=== PATIENT | female | born 1955 | race American Indian/Alaskan Native ===

== ENCOUNTER 2024-05-25 13:11 | Outpatient (REF) | payer MEDICAID, OTHER, SELFPAY ==
[2024-05-25 16:19] LABS: MANUAL DIFF FLAG NO
[2024-05-25 17:05] LABS: Basophils Percent Auto 0.6 % (0-2); Eosinophils Absolute Auto 0.1 X10*3/uL (0.0-0.4); Hematocrit 36.3 % (37.0-47.0); Imm Gran Abs Auto 0.03 X10*3/uL (0.00-0.03); Imm Gran Pct Auto 0.6 % (0.0-0.4); Lymphocytes Absolute Auto 0.9 X10*3/uL (1.2-4.9); Lymphocytes Percent Auto 17.2 % (20-40); Mean Corpuscular HGB Conc 33.1 g/dl (31.0-35.0); Mean Corpuscular Hemoglobin 28.6 pg (27.0-33.0); Mean Corpuscular Volume 86.4 fL (80.0-98.0); Mean Platelet Volume 10.7 fL (9.4-12.3); Monocytes Absolute Auto 0.3 X10*3/uL (0.1-1.2); Monocytes Percent Auto 5.6 % (2-11); Neutrophils Absolute Auto 3.9 x10*3/uL (2.0-8.3); Platelet Count 316 X10*3/uL (160-400); Red Cell Distribution Width 13.2 % (11.0-16.0); White Blood Count 5.2 X10*3/uL (4.8-10.8)
[2024-05-25 17:10] LABS: Estimated Average Glucose 111 mg/dL; Hemoglobin A1C 113.1263 umol/L; Hemoglobin A1c % 5.5 % (<6.0)
[2024-05-25 17:16] LABS: Alanine Aminotransferase 12 U/L (0-31); Albumin Level 4.2 g/dL (3.5-5.0); Alkaline Phosphatase 104 U/L (39-117); Anion Gap 15 (12-20); Aspartate Amino Transferase 26 U/L (5-31); Bilirubin Total 0.3 mg/dL (0.0-1.0); Blood Urea Nitrogen 13 mg/dL (9-16); Calcium 9.2 mg/dL (8.4-10.2); Carbon Dioxide 23 mmol/L (22-29); Chloride 109 mmol/L (96-108); Cholesterol 199 mg/dL (<200); Estimated Glomerular Filt Rate > 60; Glucose Random 100 mg/dL (60-115); HDL Cholesterol 37 mg/dL (>40); LDL Cholesterol Calculated 95 mg/dL (<100); Sodium 144 mmol/L (135-145); Total Protein 7.1 g/dL (6.5-8.0); Triglycerides 339 mg/dL (<150)
[2024-05-25 17:18] LABS: TSH reflex Free T4 1.14 uIU/mL (0.32-4.0); Vitamin D 25-OH Total 30.4 ng/mL (>30)
[2024-05-26 04:03] LABS: HIV AB/AG Nonreactive (Nonreactive); HIV Num 1 0.07 S/CO (0.00-0.99); ~Hepatitis C Antibody Nonreactive (Nonreactive)
== END 2024-05-25 13:12 | disposition home or self-care (01) ==
LOC: HO.HHCL 13:11
PROVIDERS: Visit Provider Internal Medicine
DX: I10 Essential (primary) hypertension (principal)
CPT/HCPCS: 36415; 80053; 80061; 82306; 83036; 84443; 85025; 86803; 87389

== ENCOUNTER 2024-06-08 14:38 | Outpatient (REF) | payer MEDICAID, OTHER, SELFPAY ==
[2024-06-08 16:57] LABS: Potassium 3.5 mmol/L (3.3-5.1)
== END 2024-06-08 14:39 | disposition home or self-care (01) ==
LOC: HO.HHCL 14:38
PROVIDERS: Visit Provider Internal Medicine
DX: E87.6 Hypokalemia (principal)
CPT/HCPCS: 36415; 84132

== ENCOUNTER → 2024-06-22 13:54 | Outpatient (REF) | payer MEDICAID, OTHER, SELFPAY ==
--- NOTE | 2024-06-22 13:58 | CA_ITS ---
Transthoracic Echocardiogram Patient (Last, First, Middle): Rochelle Mir Maria Gender: Female Date of : 1955 Age: 68 Procedure Date: 06/22/2024 Procedure Type: Transthoracic Echocardiogram Location: OP Height: 137.16 cm Weight: 59.99 kg BSA: 1.45 m2 Heart Rate: bpm BP: 132 / 80 mmHg Box Office Attendant: Referring MD: Shala Hawk MD Crew Clerk: Rio Butler MD Symptoms: I.10 HTN R01.1 SYSTOLIC MURMUR Study Quality: Good ECG Rhythm: Sinus Conclusions: - 1. Normal LV ejection fraction of 60 65% with impaired relaxation filling pattern 2. Vumt-bq-yjvwuhje aortic stenosis with mean gradient of 15 mm Hg 3. Normal RV systolic pressure 4. No gross pericardial effusion Findings Left Ventricle Normal left ventricular size, thickness, and systolic function. The visually estimated ejection fraction is between 60-65%. Spectral Doppler is indicative of an impaired relaxation filling pattern. E/E prime ratio is between 8 and 15 consistent with indeterminate filling pressures. Right Ventricle Normal right ventricular cavity size and systolic function. Atria Both atria are normal in size. There is no evidence of interatrial shunt. Aortic Valve There is moderate calcification of the aortic valve. There is mild thickening of the aortic valve. There is mild to moderate aortic valve stenosis. The peak aortic gradient is 31 mmHg.The mean gradient is 15 mmHg. The aortic valve area is 1.46 cm2. There is no aortic valve regurgitation. Mitral Valve There is mild anterior and posterior mitral leaflet thickening. There is trace mitral valve regurgitation. There is no mitral valve stenosis. Pulmonic Valve The pulmonic valve was not well visualized. Tricuspid Valve Likely normal tricuspid valve structure and function. There is mild tricuspid valve regurgitation. The right ventricular systolic pressure is 28 mmHg. Normal right atrial pressure. There is no evidence of pulmonary hypertension. Great Vessels The pulmonary artery was not well visualized. There is no dilatation of the ascending aorta measuring 3.30 cm. Small plaque is seen in the sino tubular ridge. Venous The inferior vena cava is normal in size and collapses greater than 50% with inspiration. Pericardium/Pleural There is no evidence of pericardial effusion. Prior Study Comparison No prior study available for comparison. Measurements 2D Linear Measurements IVSd: 0.99 0.6-0.9/0.6-1.0 cm LVIDd: 4.01 3.9-5.3/4.2-5.9 cm LVIDd Index: 2.77 2.4-3.2/2.2-3.1 cm/m2 LVIDs: 2.57 2.0-3.6 cm LVPWd: 1.03 0.7-1.1 cm Ao Root: 3.00 2.1-3.5 cm LA Diam: 3.50 2.7-3.8/3.0-4.0 cm LAIDs Index: 2.41 1.5-2.3 cm/m2 LV Mass: 160.97 67-162/88-224 g LV Mass Index: 111.01 43-95/49-115 g/m2 LVOT Diam: 1.90 3.0+(-)1.3 cm Mitral Valve MV Pk E: 0.65 MV PK A: 1.09 MV Decel Time: 223.00 E/A: 0.60 E'Lateral: 7.72 E'Medial: 5.11 E/E' Med: 12.70 E/E' Lat: 8.40 PHT: 65.00 MVA PHT: 3.38 Decel Dubois: 2.92 Aortic Valve AoV Pk Sekou: 2.77 AoV Mn Sekou: 1.78 AoV VTI: 0.55 AoV Pk Grad: 31.00 Aov Mn Grad: 15.00 JERRY Cont.VTI: 1.46 LVOT LVOT Pk Sekou: 1.24 LVOT Mn Sekou: 0.82 LVOT VTI: 0.28 LVOT Pk Grad: 6.00 LVOT Mn Grad: 3.00 LVOT Diam: 1.90 LVOT Area: 2.84 Diastolic Function MV Pk E: 0.65 MV Pk A: 1.09 E/A: 0.60 E'Medial: 5.11 E/E' Med: 12.70 E' Laterial: 7.72 E/E' Lat: 8.40 Right Ventricle TAPSE (mm): 21.00 TVS' Sekou: 11.00 Tricuspid Valve TR Pk Sekou: 2.49 TR Pk Grad: 25.00 RA Press: 3.00 RVSP: 28.00 Great Vessels Aorta Ao Root-2D: 3.00 2.0-3.7 cm Ao Asc: 3.30 2.1-3.4 cm Pulmonary Valve PV Pk Sekou: 1.08 Peak PV Grad: 5.00 Updated in Other Vendor System with Status of Final Rio Butler MD electronically signed on 06/23/2024 9:50:49 AM with status of Final
== END ==
LOC: HO.CARD 13:54
PROVIDERS: Visit Provider Internal Medicine
DX: R01.1 Cardiac murmur, unspecified (principal); I10 Essential (primary) hypertension
CPT/HCPCS: 93306

== ENCOUNTER → 2024-06-22 13:58 | Outpatient (BNV) | payer MEDICAID, SELFPAY | PROVIDERS: Visit Provider Internal Medicine Cardiovascular Disease | DX: I35.0 Nonrheumatic aortic (valve) stenosis (principal); I36.1 Nonrheumatic tricuspid (valve) insufficiency | CPT/HCPCS: 93306 ==

== ENCOUNTER 2024-07-21 10:08 | Outpatient (REF) | payer MEDICAID, OTHER, SELFPAY ==
--- NOTE | ~2024-07-21 | CT_ITS ---
CLINICAL HISTORY: suprasternal pulsation CT chest without contrast Comparison: None Findings: There is no cardiomegaly. No aortic aneurysm. Minimal atherosclerotic disease of the coronary arteries. There is atherosclerotic disease along the aortic valve No thyroid lesion. No mediastinal adenopathy. No pleural effusion or pneumothorax. No suspicious lung lesion. Tiny calcified granuloma, right middle lobe on axial 298. 3 mm subpleural nodule, axial 314 within the right lower lobe. The visualized upper abdomen demonstrates several gallstones. Low-density lesions within the liver likely reflects cysts. Line fecal retention noted throughout the colon. Impression: No CT explanation for the patient's reported sub sternal pulsation. There is no aneurysms present. There is a 3 mm right lower lobe pulmonary nodule. This does not meet size criteria to warrant follow-up; however, if the patient is considered high risk for developing malignancy, a [address] could be considered. Cholelithiasis. Fecal retention within the colon. This document has been electronically signed by: Ad Becerra MD on 07/21/2024 11:53:30
== END 2024-07-21 10:09 | disposition home or self-care (01) ==
LOC: HO.CT 10:08
PROVIDERS: PCP Internal Medicine; Visit Provider Student in an Organized Health Care Education/Training Program
DX: I71.60 Thoracoabdominal aortic aneurysm, without rupture, unspecified (principal)
CPT/HCPCS: 71250

== ENCOUNTER → 2024-07-21 10:11 | Outpatient (BNV) | payer MEDICAID, SELFPAY | PROVIDERS: PCP Internal Medicine; Visit Provider Radiology Vascular & Interventional Radiology | DX: R09.89 Other specified symptoms and signs involving the circulatory and respiratory systems (principal) | CPT/HCPCS: 71250 ==

== ENCOUNTER 2024-08-16 15:01 | Outpatient (REF) | payer MEDICAID, OTHER, SELFPAY ==
--- OUTSIDE RECORDS SUMMARY | 2024-08-16 16:01 | XMS_ITS | Encounter Summary ---
Author Organization [employer] Address [address] [facility] 7 [place] [address] Care Team Providers Care Mixer And Blender Name Role Phone Unavailable Primary Care Provider Unavailabl e Reason for Visit * Reason Comments Pre-visit Planning (Unable to reach for PVP screening, LVM) Encounter Details Date Type Department Care Team (Late st Contact Info) Description 08/04/2024 Patient Outreach [facility] [address] [place] [address] Tanya Dobbs NP [address] [place] [address] Pre-visit Planning ((Unable to reach for PVP screening, LVM)) Social History Tobacco Use Types Packs/Day Years Used Date Smoking Tobacco: Never Passive Smoke Exposure: Never Smokeless Tobacco: Never Alcohol Use Standard Drinks/Week Comments Never 0 (1 standard drink = 0.6 oz pur e alcohol) Comments Unknown Sex and Gender Information Value Date Recorded Sex Assigned at Female 05/20/2024 10:44 AM EDT Legal Sex Female 10:42 AM EDT Gender Identity Female 05/20/2024 10:44 AM EDT Sexual Orientation Straight 05/20/2024 10 :44 AM EDT documented as of this encounter Progress Notes * Sarah Byrd - 08/04/2024 9:36 AM EST LAURA Smith. Placed outbound call to patient to complete pre-visit planning. No answer at this time. Patient name and were not confirmed. CC left voicemail requesting return call. Direct contact information provided. documented in this encounter Plan of Treatment Upcoming Encounters Date Type Department Care Team (Late Contact Info) Description 09/30/2024 2:30 PM EDT Office Visit [facility] [address] [place] [id number] Tanya Dobbs NP [address] [place], [place] [phone] documented as of this encounter Visit Diagnoses Not on filedocumented in this encounter
--- OUTSIDE RECORDS SUMMARY | 2024-08-16 16:01 | XMS_ITS | Encounter Summary ---
Author Organization [employer] Address [address] [facility] [address] [place] [address] Care Team Providers Care Apprentice Plumber Name Role Phone Tanya Dobbs NP Primary Care Provider [phone] Reason for Visit * Reason Comments Med Refill Encounter Details Date Type Department Care Team ([facility] Contact Info) Description 06/16/2024 Refill [facility] [address] [place] [address] Anay Reece MD [address] [place] [address] Social History Tobacco Use Types Packs/Day Years [...] AM EDT documented as of this encounter Plan of Treatment Upcoming Encounters Date Type Department Care Team ([facility] Contact Info) Description 09/30/2024 2:30 PM EDT Office Visit [facility] [address] [place] [address] Tanya Dobbs NP [address] [place] [address] documented as of this encounter Visit Diagnoses Not on filedocumented in this encounter Care Teams Apprentice Plumber Relationship Specialty Start Date End Date Tanya Dobbs NP [address] [place] [address] PCP - General Family Medicine 08/16/24 documented as of this encounter
--- OUTSIDE RECORDS SUMMARY | 2024-08-16 16:01 | XMS_ITS | Encounter Summary ---
Author Organization [employer] Address [address] [facility] [address] [place] [address] Care Team Providers Care Pictures Editor Name Role Phone Tanya Dobbs LESLI Primary Care Provider [phone] Encounter Details Date Type Department Care Team (Latest Contact Info) Description 08/16/2024 Travel Social History Tobacco Use Types Packs/Day Years Used Date Smoking Tobacco: Never Passive Smoke Exposure: Never Smokeless Tobacco: Never Alcohol Use Standard Drinks/Week Comments Never 0 (1 standard drink = 0.6 oz pur e alcohol) Housing Stability Answer Date Recorded What is your housing situation today? I have [place] 08/16/[address] you li ve. Do you have problems with any of the following? None of the above 08/16/2024 Food Insecurity Answer Date Recorded Within the past 12 months, y ou worried that your food would run out before you got money to buy more: Sometimes True 2024 Within the past 12 months,th e food you bought just didn't last and you didn't have enough money to get more: Sometimes True 08/16/2024 Transportation Answer Date Recorded In the past 12 months, has l ack of transportation kept you from medical appts, meetings, work or from getting things needed for daily living? Yes, it has kept me from medical appointments or getting medications.;Yes, it has kept me from non-medical meetings, work, or getting things that I need 08/16/2024 Utilities Answer Date Recorded In the past 12 months, has t he electric, gas, oil or water company threatened to shut off services in your home? I am not sure 08/16/2024 Internet Access Answer Date Recorded Internet Access Q1 Yes 08/16/2024 Internet Access Q2 Not on file 08/16/2024 Comments Unknown Sex and Gender Information Value Date Recorded Sex Assigned at Female 05/20/2024 10:44 AM EDT Legal Sex Female 10:42 AM EDT Gender Identity Female 05/20/2024 10:44 AM EDT Sexual Orientation Straight 05/20/2024 10 :44 AM EDT documented as of this encounter Plan of Treatment Upcoming Encounters Date Type Department Care Team (Late st Contact Info) Description 09/30/2024 2:30 PM EDT Office Visit [facility] [address] [place] [address] Tanya Dobbs NP [address] [place] [address] documented as of this encounter Visit Diagnoses Not on filedocumented in this encounter Care Teams Pictures Editor Relationship Specialty Start Date End Date Tanya Dobbs NP [address] [place] [address] PCP - General Family Medicine 08/16/24 documented as of this encounter
--- OUTSIDE RECORDS SUMMARY | 2024-08-16 16:01 | XMS_ITS | Encounter Summary ---
Author Organization [facility] Address [address] [facility] [address]t [place] [address] Care Team Providers Care Letterpress Setter Name Role Phone Unavailable Primary Care Provider Unavailabl e Reason for Visit * Reason Onset Date Comments Chart Prep 08/03/2024 Encounter Details Date Type Department Care Team (Late st Contact Info) Description 08/03/2024 Telephone [facility] [address] [place], [place] [phone] Denice Hansen MA Chart Prep Social History Tobacco Use Types Packs/Day Years [...] AM EDT documented as of this encounter Miscellaneous Notes * Telephone Encounter - Denice Hansen MA - 08/03/2024 4:15 PM EST Chart Prep Labs: done Images: done Vaccines due: Covid Due, Tdap Due, PCV20 Due, Flu Due, and Shingles in pharmacy Due Referrals: Cardiology complete Screenings: Colonoscopy and Mammogram Overdue care gaps: Sbirt, SDOH, PHQ-9, and Oral Health documented in this encounter Plan of Treatment Upcoming Encounters Date Type Department Care Team (Late st Contact Info) Description 09/30/2024 2:30 PM EDT Office Visit [facility] [address] [place], [place] [phone] Tanya Dobbs NP [address] [place], [place] [phone] documented as of this encounter Visit Diagnoses Not on filedocumented in this encounter
--- OUTSIDE RECORDS SUMMARY | 2024-08-16 16:01 | XMS_ITS | Encounter Summary ---
Author Organization [employer] Address [address] [facility] 7t [place] [address] Care Team Providers Care Underground Mine Machinery Mechanic Name Role Phone Tanya Dobbs NP Primary Care Provider [phone] Reason for Referral * Imaging (Routine) - Authorized Specialty Diagnoses / Procedures Referred By Jo bacon Referred To Contact Radiology Diagnoses RUQ pain Procedures US Abdomen Complete Tanya Dobbs NP [address] [place] [address] Phone: tel: fax: [facility] [address] [place] [address] Phone: tel: fax: Referral ID Status Reason Start Date Expiration Date V isits Requested Visits Authorized [id number] Authorized 08/16/2024 08/16/2025 1 1 * Consultation (Routine) - Pending Review Specialty Diagnoses / Procedures Referred By Jo bacon Referred To Contact Cardiology Diagnoses Hypertension, unspecified type Aortic stenosis, moderate Tanya Dobbs NP [address] [place] [address] Phone: tel: fax: Referral ID Status Reason Start Date Expiration Date Visits Requested Visits Authorized [id number] Pending Review Specialty Services Required 08/16/2024 08/16/2025 1 1 Encounter Details Date Type Department Care Team (Late st Contact Info) Description 08/16/2024 2:00 PM EST Office Visit [facility] [address] [place] [address] Tanya Dobbs NP [address] [place] [address] Hypertension, unspecified type (Primary Dx); Aortic stenosis, moderate; RUQ pain Social History Tobacco Use Types Packs/Day Years [...] AM EDT documented as of this encounter Last Filed Vital Signs Vital Sign Reading Time Taken Comments Blood Pressure 178/84 08/16/2024 2:20 PM EST 161/80 second time RA Pulse 91 08/16/2024 2:20 PM EST Temperature 36.3 ??C (97.4 ??F) 08/16/2024 2 :20 PM EST Respiratory Rate 16 08/16/2024 2:20 PM EST Oxygen Saturation 97% 08/16/2024 2:2 0 PM EST Inhaled Oxygen Concentration - - Weight 57.4 kg (126 lb 9.6 oz) 08/16/2024 2:20 PM EST Height 149.9 cm (4' 11 ) 08/16/2024 2:2 0 PM EST Body Mass Index 25.57 08/16/2024 2:20 PM EST documented in this encounter Plan of Treatment Upcoming Encounters Date Type Department Care Team (Late st Contact Info) Description 09/30/2024 2:30 PM EDT Office Visit [facility] [address] [place] [address] Tanya Dobbs NP [address] [place] [address] Scheduled Orders Name Type Priority Associated Diagnoses Orde r Schedule Comprehensive Metabolic Panel Lab Routine RUQ pain Expected: 08/16/2024 (Approximate), Expires: 08/16/2025 US Abdomen Complete Imaging Routine RUQ pain Expected: 08/16/2024, Expires: 08/16/2025 Hepatitis C Antibody with Reflex to HCV, RNA, Quantitative, Real-Time PCR Lab Routine RUQ pain Expected: 08/16/2024, Expires: 08/16/2025 CBC auto differential Lab Routine RUQ pain Expected: 08/16/2024 (Approximate), Expires: 08/16/2025 Scheduled Referrals Name Type Priority Associated Diagnoses Orde r Schedule Referral to Cardiology Outpatient Referral Routine Hypertension, unspecified type Aortic stenosis, moderate Expected: 08/16/2024 (Approximate), Expires: 08/16/2025 documented as of this encounter Visit Diagnoses Diagnosis Hypertension, unspecified type- Primary Aortic stenosis, moderate RUQ pain Abdominal pain, right upper quadrant documented in this encounter Care Teams Underground Mine Machinery Mechanic Relationship Specialty Start Date End Date Tanya Dobbs NP [address] [place] [address] PCP - General Family Medicine 08/16/24 documented as of this encounter
--- OUTSIDE RECORDS SUMMARY | 2024-08-16 16:02 | XMS_ITS | Clinical Summary ---
Author Organization [employer] Address [address] [facility] [address] [place] [address] Care Team Providers Care Servicing Manager Name Role Phone ElbaTanya munoz LESLI Primary Care Provider [phone] Allergies No known active allergies Medications aspirin 81 MG EC tablet Take 1 tablet (81 mg) by mouth Once per day. 30 tablet 11 4 025 Active atorvastatin (Lipitor) 10 MG tabletIndication s:Uncontrolled hypertension Take 1 tablet (10 mg) by mouth Once per day. 30 tablet 11 4 025 Active lisinopril (Prinivil) 20 MG tabletIndication s:Primary hypertension Take 1 tablet (20 mg) by mouth Once per day. 30 tablet 11 4 025 Active Blood Pressure Monitoring (Blood Pressure Cuff) misc 1 kit Once per day. 1 each 5 Active amLODIPine (Norvasc) 10 MG tablet Take 1 tablet (10 mg) by mouth Once per day. 90 tablet 3 5 026 Active amLODIPine (Norvasc) 5 MG tabletIndication s:Primary hypertension Take 1 tablet (5 mg) by mouth Once per day. 30 tablet 11 4 025 Discontinued Active Problems Problem Noted Date Diagnosed Date Aortic stenosis, moderate 08/16/2024 RUQ pain 08/16/2024 Hypertension 08/15/2024 Uncontrolled hypertension 05/25/2024 Assessment & Plan (05/25/2024 1:19 PM EST): I advise low Na diet I will order blood work I will increase lisinopril to 20mg and add amlodipine 5mg daily I will refer patient to cardiology RTC nurse visit in 2 weeks if BP not at goal plan is to increase amlodipine ED precautions where reviewed with patient EKG done at office Clonidine 0.2mg given at office BP recheck 166/66mmhg Bruit of right carotid artery 05/25/2024 Systolic murmur 05/25/2024 Assessment & Plan (05/25/2024 1:21 PM EST): Echo and cardiology referral Headache 05/25/2024 Assessment & Plan (05/25/2024 1:20 PM EST): CT of head pending Headache resolved at the end of this visit, likely related to blood pressure Acetaminophen PRN Primary hypertension 05/20/2024 Encounters Date Type Department Care Team Description 08/16/2024 2:00 PM EST Office [address] [place] [address] Tanya Dobbs NP Hypertension, unspecified type (Primary Dx); Aortic stenosis, moderate; RUQ pain 08/16/2024 Travel 08/04/2024 Patient Outreach [address] [address] Tanya Dobbs NP Pre-visit Planning ((Unable to reach for PVP screening, LVM)) 08/03/[address] [address] Denice Hansen [place] Chart Prep 06/16/2024 Refill [facility] [address] [place] [phone] Anay Reece MD 06/08/2024 2:00 PM EST Clinical Support [address] [address] Meghna Reyes, DOROTHY Primary hypertension 06/08/2024 Orders Only [address] [address] Shala Mata MD 06/08/[address] [address] Meghna Reyes, RN Nurse BP check 06/08/2024 Travel 05/26/[address] [address] Maribel Zavala, DOROTHY Results 05/25/2024 11:00 AM EST Office Visit [facility] [address] [place] [address] Shala Mata MD Primary hypertension (Primary Dx); Uncontrolled hypertension; Bruit of right carotid artery; Systolic murmur; Acute nonintractable headache, unspecified headache type 05/25/2024 Travel 05/20/2024 11:00 AM EDT Office Visit [facility] [address] [place] [address] Anay Reece MD Primary hypertension (Primary Dx); Cardiac murmur; Thoracoabdominal aortic aneurysm (TAAA) without rupture, unspecified part ([facility]) 05/20/2024 Telephone [facility] [address] [place] [address] Vikki Betts RN ED Expect from Last 3 Months Family History Relation Name Status Comments Father Mother Alive Social History Tobacco Use Types Packs/Day Years Used Date Smoking Tobacco: Never Passive Smoke Exposure: Never Smokeless Tobacco: Never Tobacco Cessation:Counseling Given: Not Answered Alcohol Use Standard Drinks/Week Comments Never 0 (1 standard drink = 0.6 oz pur e alcohol) Housing Stability Answer Date Recorded What is your housing situation today? I have mariana brad 08/16/[address] you li [...] the past 12 months, has t he [employer], gas, oil or water company threatened to [...] Orientation Straight 05/20/2024 10 :44 AM EDT Last Filed Vital Signs Vital Sign Reading [...] Mass Index 25.57 08/16/2024 2:20 PM EST Plan of Treatment Upcoming Encounters Date Type Department Care Team (Late st Contact Info) Description 09/30/2024 2:30 PM EDT Office Visit [facility] [address] [place] [address] Tanya Dobbs NP [address] [place] [address] Health Maintenance Due Date Last Done Comments CT Colonography 1955 Colonoscopy 1955 Colorectal Cancer Screening 1955 Depression Screening 1955 FIT DNA/Cologuard 1957 FIT 1957 FOBT 1955 Sigmoidoscopy 1957 Pneumococcal Vaccine: 65+ Ye ars (1 of 2 - PCV) 12/15/1963 DTaP/Tdap/Td Vaccines (1 - Tdap) 1976 Mammogram 1997 Zoster Vaccines (1 of 2) 12/15/2007 RSV Patients and Pa tients Aged 60 years or older (1 - Risk 60-74 years 1-dose series) 2017 COVID-19 Vaccine (1 - 2023-2 5 season) 2024 Influenza Vaccine (#1) 2024 Alcohol/Substance Use Screening 08/16/2025 SDOH Screening 08/16/2025 08/16/2024 Tobacco Screening 08/16/2025 08/16/2024 Lipid Panel 05/25/2029 05/25/2024 Hepatitis C Screening Completed 05/25/2024 HIB Vaccines Aged Out No longer eligi ble based on patient's age to complete this topic HPV Vaccines Aged Out No longer eligi ble based on patient's age to complete this topic Hepatitis A Vaccines Aged Out No long er eligible based on patient's age to complete this topic Hepatitis B Vaccines Aged Out No long er eligible based on patient's age to complete this topic IPV Vaccines Aged Out No longer eligi ble based on patient's age to complete this topic Meningococcal Vaccine Aged Out No moise jami eligible based on patient's age to complete this topic RSV under 20 months Aged Out No longe r eligible based on patient's age to complete this topic Rotavirus Vaccines Aged Out No longer eligible based on patient's age to complete this topic Procedures Procedure Name Priority Date/Time Associated Diagnosis Comments CT CHEST WO CONTRAST Routine 07/21/2024 11:53 AM EST Thoracoabdominal aortic aneurysm (TAAA) without rupture, unspecified part (CMS/HCC) POTASSIUM Routine 06/08/2024 2:39 PM EST ECG 12-LEAD Routine 05/25/2024 1:19 PM EST Uncontrolled hypertension TSH W/REFLEX TO FT4 Routine 05/25/2024 1 :13 PM EST Uncontrolled hypertension VITAMIN D,25-OH,TOTAL,IA Routine 05/25/2024 1:13 PM EST Uncontrolled hypertension LIPID PANEL, STANDARD Routine 05/25/2024 1:13 PM EST Uncontrolled hypertension HEPATITIS C AB W/REFL TO HCV RNA, QN, PCR Routine 05/25/2024 1:13 PM EST Uncontrolled hypertension HIV 1/2 ANTIGEN/ANTIBODY, FOURTH GENERATION W/RFL Routine 05/25/2024 1:13 PM EST Uncontrolled hypertension HEMOGLOBIN A1C Routine 05/25/2024 1:13 PM EST Uncontrolled hypertension COMPREHENSIVE METABOLIC PANEL Routine 05/25/2024 1:13 PM EST Uncontrolled hypertension CBC WITH AUTO DIFFERENTIAL Routine 05/25/2024 1:13 PM EST Uncontrolled hypertension ECG 12-LEAD Routine 05/20/2024 11:44 AM EDT Cardiac murmur from Last 3 Months Results * CT Chest w/o Contrast (07/21/2024 11:53 AM EST) Anatomical Region Laterality Modality Body, Chest Computed Tomogra phy 07/21/2024 11:5 3 AM EST Narrative 07/21/2024 11:55 AM EST ? [facility] ?[address] ?[place] [address] ? CT Scan Report ? Signed ? Patient: CammiejessicaRochelle Doll ? MR#: [id number] ? : 1955 ?Acct:[id number] ? Age/Sex: 68 / F ?ADM Date: 07/21/24 ? Loc: HO.CT ? Attending Dr: Anay Reece MD ? Ordering Physician: Anay Reece MD ?? Date of Service: 07/21/24 ?? Procedure(s): CT chest wo IV con ?? Accession Number(s): [id number] ? cc: Shala Mata MD; Anay Reece MD ? Report Number: ?? [id number]: Total DLP = ??107.00 mGy-cm ? CLINICAL HISTORY: suprasternal pulsation ? CT chest without contrast ? Comparison: None ? Findings: ?? There is no cardiomegaly. ?? No aortic aneurysm. ?? Minimal atherosclerotic disease of the coronary arteries. There is ?? atherosclerotic disease along the aortic valve ?? No thyroid lesion. ?? No mediastinal adenopathy. ?? No pleural effusion or pneumothorax. ?? No suspicious lung lesion. Tiny calcified granuloma, right middle lobe on ?? axial 298. ?? 3 mm subpleural nodule, axial 314 within the right lower lobe. ?? The visualized upper abdomen demonstrates several gallstones. Low-density ?? lesions within the liver likely reflects cysts. Line fecal retention noted ?? throughout the colon. ? Impression: ? No CT explanation for the patient's reported sub sternal pulsation. There ?? is no aneurysms present. ?? There is a 3 mm right lower lobe pulmonary nodule. This does not meet size ?? criteria to warrant follow-up; however, if the patient is considered high ?? risk for developing malignancy, a [address] could be considered. ?? Cholelithiasis. ?? Fecal retention within the colon. ? This document has been electronically signed by: Ad Becerra MD on ?? 07/21/2024 11:53:30 ? Dictated By: ?Ad Becerra MD ? Signed By: ?<Electronically signed by Ad Becerra MD in OV> ? 01/02/25 1154 ? DD/ 1153 ? TD/TT: 07/21/24 1153 ? Anatomic Pathology Assistant: ? Procedure Note Bekahter, Image - 07/21/[address] [address] [address] Scan Report Signed Patient: Rochelle Mir MR#: [id number] : 8Acct:[id number] Age/Sex: 68 / FADM Date: 07/21/24 Loc: HO.CT Attending Dr: Anay Reece MD Ordering Physician: Anay Reece MD Date of Service: 07/21/24 Procedure(s): CT chest wo IV con Accession Number(s): [id number] cc: Shala Mata MD; Anay Reece MD Report Number: [id number]: Total DLP = 107.00 mGy-cm CLINICAL HISTORY: suprasternal pulsation CT chest without contrast Comparison: None Findings: There is no cardiomegaly. No aortic aneurysm. Minimal atherosclerotic disease of the coronary arteries. There is atherosclerotic disease along the aortic valve No thyroid lesion. No mediastinal adenopathy. No pleural effusion or pneumothorax. No suspicious lung lesion. Tiny calcified granuloma, right middle lobe on axial 298. 3 mm subpleural nodule, axial 314 within the right lower lobe. The visualized upper abdomen demonstrates several gallstones. Low-density lesions within the liver likely reflects cysts. Line fecal retention noted throughout the colon. Impression: No CT explanation for the patient's reported sub sternal pulsation. There is no aneurysms present. There is a 3 mm right lower lobe pulmonary nodule. This does not meet size criteria to warrant follow-up; however, if the patient is considered high risk for developing malignancy, a [address] could be considered. Cholelithiasis. Fecal retention within the colon. This document has been electronically signed by: Ad Becerra MD on 07/21/2024 11:53:30 Dictated By: Ad Becerra MD Signed By: <Electronically signed by Ad Becerra MD in OV> 07/21/24 1154 DD/ 1153 TD/TT: 07/21/24 1153 Anatomic Pathology Assistant: us Anay Reece MD IMG CT PROCEDURES Edited Result - Final * Potassium (06/08/2024 2:39 PM EST) Potassium 3.5 3.3 - 5.1 mmol/L [facility] 06/08/2024 2:39 PM EST 06/08/2024 4:29 PM EST us Shala Hawk MD LAB BLOOD ORDERABLES Final Result [facility] [address] [place] [phone] * ECG 12 lead (05/25/2024 1:19 PM EST) Only the most recent of2 resultswithin the time period is included. Narrative Shala Mata MD - 05/25/2024 1:19 PM EST NSR Shala Hawk MD ECG ORDERABLES Final Result * Vitamin D, 25-Hydroxy, Total, Immunoassay (05/25/2024 1:13 PM EST) Vitamin D 25-OH Total 30.4 >30 ng/mL [facility] Comment:Health Based Referen ce Values*< 20 ng/mL Zyxevipkq80-90 ng/mL Insufficient> 30 ng/mL Sufficient*Jorge A RAMIRES. N Engl J Med. 2007;357:266-280Care must be taken in interpreting Vitamin D results fromdifferent laboratories and methodologies. Published datademonstrated that results from patients undergoinghemodialysis may show a negative bias when tested withvarious automated 25-OH vitamin D assays when compared toLC-MS/MS.When testing samples from patients whose predominant form ofVitamin D is Vitamin D2, such as patients receiving VitaminD2 supplementation, results that are subtherapeutic shouldbe confirmed with another method such as LC-MS/MS. Blood Venous blood specimen / Unknown 05/25/2024 1:13 PM EST 05/25/2024 4:08 PM EST us Shala Hawk MD LAB BLOOD ORDERABLES Final Result Performing Organization Address [facility]/ZIP Co de Phone Number [facility] [address] [place] [phone] * TSH with Reflex to Free T4 (05/25/2024 1:13 PM EST) TSH reflex Free T4 1.14 0.32 - 4.0 uIU/mL [facility] Blood Venous blood specimen / Unknown 05/25/2024 1:13 PM EST 05/25/2024 4:08 PM EST us Shala Hawk MD LAB BLOOD ORDERABLES Final Result Performing Organization Address [facility]/ZIP Co de Phone Number [facility] [address] [place] [phone] * (ABNORMAL) CBC auto differential (05/25/2024 1:13 PM EST) White Blood Count 5.2 4.8 - 10.8 X10*3/uL [facility] Red Blood Count 4.20 4.20 - 5.50 X10*6/uL [facility] Hemoglobin 12.0 12.0 - 16.0 g/dl [facility] Hematocrit 36.3(L) 37.0 - 47.0 % [facility] Mean Corpuscular Volume 86.4 80.0 - 98.0 fL [facility] Mean Corpuscular Hemoglobin 28.6 27.0 - 33.0 pg [facility] Mean Corpuscular HGB Conc 33.1 31.0 - 35.0 g/dl [facility] Red Cell Distribution Width 13.2 11.0 - 16.0 % [facility] Platelet Count 316 160 - 400 X10*3/uL [facility] Mean Platelet Volume 10.7 9.4 - 12.3 fL [facility] Neutrophils Percent Auto 75.0(H) 45 - 73 % [facility] Imm Gran Pct Auto 0.6(H) 0.0 - 0.4 % [facility] Lymphocytes Percent Auto 17.2(L) 20 - 40 % [facility] Monocytes Percent Auto 5.6 2 - 11 % [facility] Eosinophils Percent Auto 1.0 0 - 4 % [facility] Basophils Percent Auto 0.6 0 - 2 % [facility] NRBC Pct Auto 0.0 0.0 - 0.2 /100WBC [facility] Neutrophils Absolute Auto 3.9 2.0 - 8.3 x10*3/uL [facility] Imm Gran Abs Auto 0.03 0.00 - 0.03 X10*3/uL [facility] Lymphocytes Absolute Auto 0.9(L) 1.2 - 4.9 X10*3/uL [facility] Monocytes Absolute Auto 0.3 0.1 - 1.2 X10*3/uL [facility] Eosinophils Absolute Auto 0.1 0.0 - 0.4 X10*3/uL [facility] Basophils Absolute Auto 0.0 0.0 - 0.2 X10*3/uL [facility] NRBC Abs Auto 0.000 0.0 - 0.012 X10*3/uL [facility] Blood Venous blood specimen / Unknown 05/25/2024 1:13 PM EST 05/25/2024 4:08 PM EST Shala Hawk MD LAB BLOOD ORDERABLES Final Result Performing Organization Address [facility]/ZIP Co de Phone Number [facility] [address] [place] [phone] * Hepatitis C Antibody with Reflex to HCV, RNA, Quantitative, Real-Time PCR (05/25/2024 1:13 PM EST) Hepatitis C Antibody Nonreactive Nonreactive [facility] Comment:Antibodies to HCV no t detected; does not exclude early acuteHCV infection. Blood Venous blood specimen / Unknown 05/25/2024 1:13 PM EST 05/25/2024 4:08 PM EST us Shala Hawk MD LAB BLOOD ORDERABLES Final Result Performing Organization Address [facility] Co de Phone Number [facility] [address] [place] [phone] * HIV-1/2 Antigen and Antibodies, Fourth Generation, with Reflexes (05/25/2024 1:13 PM EST) HIV AB/AG Nonreactive Nonreactive [facility] Comment:HIV-1 p24 Ag and/or HIV-1/HIV-2 Ab not detected.A test result that is nonreactive does not exclude thepossibility of exposure to or infection with HIV-1 and/orHIV-2. Nonreactive results in this assay for individualswith prior exposure to HIV-1 and/or HIV-2 may be due toantigen and antibody levels that are below the limit ofdetection of this assay.The [employer] Alinity HIV Ag/Ab Combo assay result andsupplemental assay results should be interpreted inconjunction with the patient's clinical presentation,history and other laboratory results. If the results areinconsistent with clinical evidence, additional testing issuggested to confirm the result. Blood Venous blood specimen / Unknown 05/25/2024 1:13 PM EST 05/25/2024 4:08 PM EST us Shala Hawk MD LAB BLOOD ORDERABLES Final Result Performing Organization Address [facility] Co de Phone Number [facility] [address] [place] [phone] * Hemoglobin A1c (05/25/2024 1:13 PM EST) Hemoglobin A1c 5.5 <6.0 % [facility] Comment:Hemoglobin A1C Refer ence Range Adults: 4.8 - 6.0 % Non diabetic: < 6.0 % Goal: < 7.0 %Additional Action Suggested: > 8.0 %Note: Hemoglobin A1c results are invalid for patients with abnormal amounts of HbF. Blood transfusions may impact the HbA1c concentration in the patient sample. Estimated Average Glucose 111 mg/dL [facility] Comment:eAG = Estimated ave rage glucose which is %A1C expressed asaverage glucose, using the formula of the W0A-YdjefljRiurvyy Glucose study (ADAG), Diabetes Care, Vol.31,#8,Feb. 2007 Blood Venous blood specimen / Unknown 05/25/2024 1:13 PM EST 05/25/2024 4:08 PM EST us Shala Hawk MD LAB BLOOD ORDERABLES Final Result Performing Organization Address [facility] Co de Phone Number [facility] [address] [place] [address] [phone] * (ABNORMAL) Lipid Panel, Standard (05/25/2024 1:13 PM EST) Triglycerides 339(H) <150 mg/dL [facility] Comment:Desirable Triglyceri de: less than 150 mg/dLBorderline High Triglyceride 150-199 mg/dLHigh Triglyceride: 200-499 mg/dLVery High Triglyceride: greater than or equal to 5OO mg/dL Cholesterol 199 <200 mg/dL [facility] Comment:Desirable Cholestero l: less than 200 mg/dLBorderline High Cholesterol: 200-239 mg/dLHigh Cholesterol: greater than 239 mg/dL LDL Cholesterol Calculated 95 <100 mg/dL [facility] Comment:Desirable LDL: less than 100 mg/dLNear Optimal/Above Optimal LDL: 110- 129 mg/dLBorderline High LDL: 130-159 mg/dLHigh LDL: 160-189 mg/dLVery High LDL: greater than or equal to 190 mg/dL HDL Cholesterol 37(L) >40 mg/dL [facility] Comment:Desirable HDL: great er than 40 mg/dL Note: This HDL assay may give artificially low results in patients with liver disease. Blood Venous blood specimen / Unknown 05/25/2024 1:13 PM EST 05/25/2024 4:08 PM EST us Shala Hawk MD LAB BLOOD ORDERABLES Final Result [facility] [address] [place] [phone] * (ABNORMAL) Comprehensive Metabolic Panel (05/25/2024 1:13 PM EST) Sodium 144 135 - 145 mmol/L [facility] Potassium 3.0(L) 3.3 - 5.1 mmol/L [facility] Chloride 109(H) 96 - 108 mmol/L [facility] Carbon Dioxide 23 22 - 29 mmol/L [facility] Anion Gap 15 12 - 20 [facility] Urea Nitrogen (BUN) 13 9 - 16 mg/dL [facility] Creatinine, Serum 0.55 0.5 - 1.4 mg/dL [facility] Estimated Glomerular Filt Rate >60 [facility] Comment:NOTE: For -Am erican individuals, multiply the result by 1.210.Chronic Kidney Disease: Estimated GFR < 60 mL/min/1.65e6Xqfysy Kidney Disease: Estimated GFR < 15 mL/min/1.73m2 Glucose 100 60 - 115 mg/dL [facility] Calcium 9.2 8.4 - 10.2 mg/dL [facility] Bilirubin, Total 0.3 0.0 - 1.0 mg/dL [facility] Aspartate Amino Transferase 26 5 - 31 U/L [facility] Alanine Aminotransferase 12 0 - 31 U/L [facility] Total Protein 7.1 6.5 - 8.0 g/dL [facility] Albumin Level 4.2 3.5 - 5.0 g/dL [facility] Alkaline Phosphatase 104 39 - 117 U/L [facility] Blood Venous blood specimen / Unknown 05/25/2024 1:13 PM EST 05/25/2024 4:08 PM EST Shala Hawk MD LAB BLOOD ORDERABLES Final Result [facility] [address] [place] [phone] from Last 3 Months Insurance [facility] HSN FULL Care Teams Servicing Manager Relationship Specialty Start Date End Date Tanya Dobbs NP [address] [place] [phone] PCP - General Family Medicine 08/16/24
[2024-08-16 16:13] LABS: MANUAL DIFF FLAG NO
[2024-08-16 16:28] LABS: Basophils Percent Auto 0.8 % (0-2); Eosinophils Absolute Auto 0.1 X10*3/uL (0.0-0.4); Hematocrit 36.5 % (37.0-47.0); Hemoglobin 12.4 g/dl (12.0-16.0); Imm Gran Abs Auto 0.06 X10*3/uL (0.00-0.03); Imm Gran Pct Auto 1.2 % (0.0-0.4); Lymphocytes Absolute Auto 1.2 X10*3/uL (1.2-4.9); Lymphocytes Percent Auto 23.9 % (20-40); Mean Corpuscular Hemoglobin 29.7 pg (27.0-33.0); Mean Corpuscular Volume 87.5 fL (80.0-98.0); Mean Platelet Volume 10.5 fL (9.4-12.3); Monocytes Absolute Auto 0.3 X10*3/uL (0.1-1.2); Monocytes Percent Auto 4.8 % (2-11); Neutrophils Absolute Auto 3.5 x10*3/uL (2.0-8.3); Neutrophils Percent Auto 68.3 % (45-73); Platelet Count 306 X10*3/uL (160-400); Red Blood Count 4.17 X10*6/uL (4.20-5.50); Red Cell Distribution Width 13.2 % (11.0-16.0); White Blood Count 5.2 X10*3/uL (4.8-10.8)
[2024-08-16 16:51] LABS: Alanine Aminotransferase 22 U/L (0-31); Albumin Level 4.4 g/dL (3.5-5.0); Alkaline Phosphatase 102 U/L (39-117); Anion Gap 11 (12-20); Aspartate Amino Transferase 18 U/L (5-31); Bilirubin Total 0.2 mg/dL (0.0-1.0); Blood Urea Nitrogen 13 mg/dL (9-16); Calcium 9.2 mg/dL (8.4-10.2); Carbon Dioxide 28 mmol/L (22-29); Chloride 109 mmol/L (96-108); Estimated Glomerular Filt Rate > 60; Glucose Random 125 mg/dL (60-115); Potassium 3.7 mmol/L (3.3-5.1); Sodium 144 mmol/L (135-145); Total Protein 7.8 g/dL (6.5-8.0)
[2024-08-17 03:38] LABS: ~HepC Num1 0.13 S/CO (0.00-0.79); ~Hepatitis C Antibody Nonreactive (Nonreactive)
== END 2024-08-16 15:02 | disposition home or self-care (01) ==
LOC: HO.HHCL 15:01
PROVIDERS: Visit Provider Nurse Practitioner Family
DX: R10.11 Right upper quadrant pain (principal)
CPT/HCPCS: 36415; 80053; 85025; 86803

== ENCOUNTER 2025-01-02 12:33 | Outpatient (REF) | payer SELFPAY ==
[2025-01-02 13:48] LABS: Alanine Aminotransferase 23 U/L (0-31); Albumin Level 4.7 g/dL (3.5-5.0); Alkaline Phosphatase 93 U/L (39-117); Anion Gap 12 (12-20); Aspartate Amino Transferase 20 U/L (5-31); Bilirubin Total 0.4 mg/dL (0.0-1.0); Blood Urea Nitrogen 14 mg/dL (9-16); Carbon Dioxide 26 mmol/L (22-29); Chloride 109 mmol/L (96-108); Estimated Glomerular Filt Rate > 60; Glucose Random 101 mg/dL (60-115); Magnesium 2.3 mg/dL (1.6-2.6); Potassium 3.5 mmol/L (3.3-5.1); Sodium 143 mmol/L (135-145); Total Protein 7.5 g/dL (6.5-8.0)
--- OUTSIDE RECORDS SUMMARY | 2025-01-02 13:55 | XMS_ITS | Encounter Summary ---
Author Organization [employer] Address [address] [facility] [address] [place] [address] Care Team Providers Care Copper Plate Lithographer Name Role Phone Tanya Dobbs NP Primary Care Provider [phone] Reason for Visit * Reason Comments Med Refill Encounter Details Date Type Department Care Team (Late Contact Info) Description 06/16/2024 Refill [facility] [address] [place] [address] Anay Reece MD [address], [place] [phone] Social History Tobacco Use Types Packs/Day Years [...] Department Care Team (Late Contact Info) Description 01/03/2025 9:30 AM EDT Nurse Only [facility] [address] [place] [phone] 03/07/2025 11:30 AM EDT Office Visit [facility] [address] [place] [phone] Tanya Dobbs NP [address] [place] [address] documented as of this encounter Visit Diagnoses Not on filedocumented in this encounter Care Teams Copper Plate Lithographer Relationship Specialty Start Date End Date Tanya Dobbs NP [address] [place] [address] PCP - General Family Medicine 08/16/24 documented as of this encounter
== END 2025-01-02 12:34 | disposition home or self-care (01) ==
LOC: HO.HHCL 12:33
PROVIDERS: Visit Provider Nurse Practitioner Family
DX: R25.2 Cramp and spasm (principal)
CPT/HCPCS: 36415; 80053; 83735

== ENCOUNTER → 2025-03-14 09:01 | Outpatient (REF) | payer MEDICAID, OTHER, SELFPAY ==
--- NOTE | 2025-03-14 09:08 | CA_ITS ---
Transthoracic Echocardiogram Patient (Last, First, Middle): Rochelle Mir Maria Gender: F Date of : 1955 Age: 69 Procedure Date: 03/14/2025 Procedure Type: Transthoracic Echocardiogram Location: OP Height: 149.86 cm Weight: 69.85 kg BSA: 1.65 m2 Heart Rate: bpm BP: 146 / 80 mmHg Heating Equipment Repairer: DELIA Referring MD: Tanya Dobbs DETECTIVE Symptoms: R01.1 MURMUR Study Quality: Adequate ECG Rhythm: Sinus Conclusions: - The left ventricular systolic function is normal. The calculated ejection fraction is 62% by biplane method. - There is mild aortic valve stenosis. Findings Left Ventricle Normal left ventricular cavity size. There is normal left ventricular wall thickness. The left ventricular systolic function is normal. The calculated ejection fraction is 62% by biplane method. There is no evidence of regional wall motion abnormalities. Diastolic function is normal for age. Right Ventricle Normal right ventricular cavity size and systolic function. Atria Both atria are normal in size. Aortic Valve There is moderate calcification of the aortic valve. There is mild aortic valve stenosis. There is trace (trivial) aortic valve regurgitation. Trace to mild aortic regurgitation. Mitral Valve The mitral valve appears normal. There is trace mitral valve regurgitation. There is no mitral valve stenosis. Pulmonic Valve The pulmonic valve is likely normal. Tricuspid Valve There is mild tricuspid valve regurgitation. There is no evidence of pulmonary hypertension. Great Vessels The asc aorta and aortic arch are normal in size. Small plaque is seen in the sinuses of Valsalva. Venous The inferior vena cava is normal in size and collapses greater than 50% with inspiration. Pericardium/Pleural There is no evidence of pericardial effusion. Prior Study Comparison No significant change compared to prior study dated: 06/22/2024. Measurements 2D Linear Measurements IVSd: 0.95 0.6-0.9/0.6-1.0 cm LVIDd: 3.88 3.9-5.3/4.2-5.9 cm LVIDd Index: 2.35 2.4-3.2/2.2-3.1 cm/m2 LVIDs: 2.40 2.0-3.6 cm LVPWd: 0.67 0.7-1.1 cm LA Diam: 3.00 2.7-3.8/3.0-4.0 cm LAIDs Index: 1.82 1.5-2.3 cm/m2 LV Mass: 112.09 67-162/88-224 g LV Mass Index: 67.94 43-95/49-115 g/m2 LVOT Diam: 1.90 3.0+(-)1.3 cm 2D Systolic Function EF 4C: 58.60 >55% EF 2C: 63.80 >55% EF BiP: 61.60 >55% Mitral Valve MV Pk E: 0.87 MV PK A: 1.13 MV Decel Time: 247.00 E/A: 0.80 E'Lateral: 8.27 E'Medial: 5.87 E/E' Med: 14.80 E/E' Lat: 10.50 PHT: 72.00 MVA PHT: 3.06 Decel [place]: 3.52 Aortic Valve AoV Pk Sekou: 2.77 AoV Mn Sekou: 1.57 AoV VTI: 0.55 AoV Pk Grad: 31.00 Aov Mn Grad: 12.00 JERRY Cont.VTI: 1.63 LVOT LVOT Pk Sekou: 1.37 LVOT Mn Sekou: 0.82 LVOT VTI: 0.31 LVOT Pk Grad: 8.00 LVOT Mn Grad: 3.00 LVOT Diam: 1.90 LVOT Area: 2.84 Diastolic Function MV Pk E: 0.87 MV Pk A: 1.13 E/A: 0.80 E'Medial: 5.87 E/E' Med: 14.80 E' Laterial: 8.27 E/E' Lat: 10.50 Right Ventricle TAPSE (mm): 20.70 TVS' Sekou: 11.30 Tricuspid Valve TR Pk Sekou: 2.59 TR Pk Grad: 27.00 RA Press: 3.00 RVSP: 30.00 Great Vessels Aorta Sinus of Valsalva: 3.32 2.0-3.[address] [place]: 2.33 1.7-3.4 cm Ao Asc: 3.40 2.1-3.4 cm Ao Arch: 2.80 Pulmonary Veins Pulm Vein S/D 1.40 Updated in Other Vendor System with Status of Final Jd Mukherjee MD electronically signed on 03/14/2025 3:37:06 PM with status of Final
--- OUTSIDE RECORDS SUMMARY | 2025-03-14 09:21 | XMS_ITS | Encounter Summary ---
Author Organization [employer] Address [address] [place] [address] Care Team Providers Care Brain Surgeon Name Role Phone ElbaTanya munoz LESLI Primary Care Provider [phone] Reason for Visit * Reason Comments Med Refill Encounter Details Date Type Department Care Team (Late st Contact Info) Description 12/21/2024 Refill [facility] [address] [place], [place] [phone] Shala Mata MD [address] [place], [place] [phone] Acute nonintractable headache, unspecified headache type Social History Tobacco Use Types Packs/Day Years Used Date Smoking Tobacco: Never Passive Smoke Exposure: Never Smokeless Tobacco: Never Alcohol Use Standard Drinks/Week Comments Never 0 (1 standard drink = 0.6 oz pur e alcohol) Depression Answer Date Recorded Patient Health Questionnaire-9 Score 3 09/30/2024 Patient Health Questionnaire-9 Score 3 09/30/2024 Last PHQ-9: Questionnaire Data Not on file 0 09/30/2024 Housing Stability Answer Date Recorded What is [...] your home? I am not sure 08/16/2024 Depression Answer Date Recorded Patient Health Questionnaire-2 Score 0 09/30/2024 Internet Access Answer Date Recorded Internet Access [...] Care Team (Late st Contact Info) Description 04/24/2025 11:15 AM EDT Office Visit [facility] OPTOMETRY [address] [place] [address] Tarka, Verito, OD [address] [place] [address] 05/22/2025 9:30 AM EST Office Visit [facility] MEDICINE [address] [place] [address] Tanya Dobbs NP [address] [place] [address] documented as of this encounter Visit Diagnoses Diagnosis Acute nonintractable headache, unspecified headache type documented in this encounter Additional Health Concerns Assessment Noted Time PHQ-9 Depression Total Score: 3 10/01/19 25 3:05 PM EDT documented as of this encounter Care Teams Brain Surgeon Relationship Specialty Start Date End Date Tanya Dobbs NP [address] [place] [address] PCP - General Family Medicine 08/16/24 documented as of this encounter
--- OUTSIDE RECORDS SUMMARY | 2025-03-14 09:21 | XMS_ITS | Clinical Summary ---
Author Organization [email or web address] Address [address] [facility] [address] [place] [address] Care Team Providers Care Tubing Assembler Name Role Phone ElbaTanya munoz LESLI Primary Care Provider [phone] Allergies No known active allergies Medications atorvastatin (Lipitor) 10 MG tabletIndications :Uncontrolled hypertension Take 1 tablet (10 mg) by mouth Once per day. 30 tablet 11 05/25/2024 05/25/20 25 Active lisinopril (Prinivil) 20 MG tabletIndications :Primary hypertension Take 1 tablet (20 mg) by mouth Once per day. 30 tablet 11 05/25/2024 05/25/20 25 Active Blood Pressure Monitoring (Blood Pressure Cuff) misc 1 kit Once per day. 1 each 08/16/2024 Active amLODIPine (Norvasc) 10 MG tablet Take 1 tablet (10 mg) by mouth Once per day. 90 tablet 3 08/16/2024 08/16/19 26 Active famotidine (Pepcid) 20 MG tablet Take 1 tablet (20 mg) by mouth 2 times daily. 60 tablet 11 09/30/2024 10/01/19 26 Active aspirin 81 MG EC tablet Take 1 tablet (81 mg) by mouth Once per day. 30 tablet 11 09/30/2024 10/01/19 26 Active acetaminophen (Tylenol Extra Strength) 500 MG tabletIndications :Cervicalgia Take 1 tablet (500 mg) by mouth every 8 (eight) hours if needed for mild pain for up to 20 days. 30 tablet 1 03/07/2025 03/27/20 25 Active Active Problems Problem Noted Date Diagnosed Date Dietary counseling 03/07/2025 Assessment & Plan (03/07/2025 11:52 AM EDT): Dietary Recommendations: Fruits, vegetables, whole grains, protein foods, and fat-free or low-fat dairy products are healthy choices. Eat different types of protein foods in your diet. This can include seafood, lean meats, poultry, beans, peas, lentils, nuts, seeds, soy products, and eggs. Limit foods and beverages higher in added sugars, saturated fat, and sodium. Exercise Recommendations: At least 150 minutes of moderate-intensity physical activity per week, or an equivalent combination of moderate- and vigorous-intensity activity Exercise counseling 03/07/2025 Post menopausal syndrome 03/07/2025 Lipoma of left upper extremity 03/07/2025 Chronic left-sided low back pain without sciatic a 01/02/2025 Assessment & Plan (01/02/2025 6:21 PM EDT): Pt reports this is related to twisting movements with cleaning Referral to physical therapy Cramps of left lower extremity 01/02/2025 Assessment & Plan (01/02/2025 6:22 PM EDT): Rarely occurs, will order electrolytes Pt does not correlate symptoms with medications usage Right upper quadrant abdominal pain 09/30/2024 Assessment & Plan (12/02/2024 6:41 PM EDT): Abdominal ultrasound ordered, if neg referral to GI Aware of s/s requiring urgent evaluation Aortic stenosis, moderate 08/16/2024 Assessment & Plan (03/07/2025 4:23 PM EDT): Upcoming visit with cardiology Assessment & Plan (01/02/2025 6:20 PM EDT): Asymptomatic, will repeat echo, if stable space echo frequency Assessment & Plan (08/16/2024 4:44 PM EST): Reviewed s/s to report, Referral to cardiology Bp addressed below RUQ pain 08/16/2024 Assessment & Plan (08/16/2024 4:44 PM EST): Abdominal ultrasound ordered, low fat diet Hypertension 08/15/2024 Assessment & Plan (12/02/2024 6:41 PM EDT): Above goal in clinic today, generally at goal at home Continue current regimen and measurement and Return to clinic for increased readings Uncontrolled hypertension 05/25/2024 Assessment & Plan (05/25/2024 [...] blood pressure Acetaminophen PRN Primary hypertension 05/20/2024 Assessment & Plan (01/02/2025 6:21 PM EDT): Pt reports non compliance with medications, pt willing to take lisinopril 20 mg daily, Return to clinic in 4-6 weeks Assessment & Plan (08/16/2024 4:45 PM EST): Above goal. Continue lisinopril, increased amlodipine to 10 mg Bp cuff ordered Lifestyle interventions reviewed Referral to cardiology Follow up in 4-6 weeks Encounters Date Type Department Care Team Description 03/07/2025 11:30 AM EDT Office Visit [facility] [address] [place] [phone] Tanya Dobbs NP Primary hypertension (Primary Dx); Bruit of right carotid artery; Aortic stenosis, moderate; Dietary counseling; Exercise counseling; Post menopausal syndrome; Lipoma of left upper extremity; Encounter for screening mammogram for malignant neoplasm of breast; Cervicalgia 03/07/2025 Travel 03/06/2025 Telephone [facility] [address] [place] [address] Tanya Dobbs NP Chart Prep 01/10/2025 Results Follow-Up [facility] [address] [facility] [place] [address] Tanya Dobbs NP Comprehensive Metabolic Panel, Magnesium 01/02/2025 11:15 AM EDT Office Visit [facility] [address] [place] [address] Tanya Dobbs NP Primary hypertension (Primary Dx); Chronic left-sided low back pain without sciatica; Cramps of left lower extremity; Vision changes; Murmur; Aortic stenosis, moderate 01/02/2025 Travel 12/21/2024 Refill [facility] [address] [place] [address] Shala Mata MD Acute nonintractable headache, unspecified headache type from Last 3 Months Immunizations Immunization Administration Dates Next Due HepB-CpG 01/03/2025,10/11/2024 Family History Relation Name Status Comments Father [...] Sign Reading Time Taken Comments Blood Pressure 140/90 03/07/2025 11:44 AM EDT Pulse 83 03/07/2025 11:44 AM EDT Temperature 35.6 C (96 F) 03/07/2025 11:44 AM EDT Respiratory Rate 20 03/07/2025 11:44 AM EDT Oxygen Saturation 97% 03/07/2025 11:44 AM EDT Inhaled Oxygen Concentration - - Weight 57.6 kg (127 lb) 03/07/2025 11:44 AM EDT Height 149.9 cm (4' 11 ) 03/07/2025 11:44 AM EDT Body Mass Index 25.65 03/07/2025 11:44 AM EDT Plan of Treatment Upcoming Encounters Date Type Department Care Team (Late st Contact Info) Description 04/24/2025 11:15 AM EDT Office Visit [facility] OPTOMETRY [address] [place] [address] Verito Hooper OD [address] [place] [address] 05/22/2025 9:30 AM EST Office Visit [facility] [address] [place] [address] Tanya Dobbs NP [address] [place] [address] Health Maintenance Due Date Last Done Comments CT Colonography 1955 Colonoscopy 1955 FIT 1955 FOBT 1955 Sigmoidoscopy 1955 DTaP/Tdap/Td Vaccines (1 - Tdap) 1976 Pneumococcal Vaccine: 50+ Years (1 of 2 - PCV) 1976 Mammogram 1997 Zoster Vaccines (1 of 2) 12/15/2007 RSV Patients and Patients Aged 60 years or older (1 - Risk 60-74 years 1-dose series) 2017 COVID-19 Vaccine (2023-2 5 season) 2024 Influenza Vaccine (#1) 2025 Alcohol/Substance Use Screening 08/16/2025 08/16/2024 SDOH Screening 08/16/2025 08/16/2024 Depression Screening 09/30/2025 09/30/2024, 09/30/2024 Tobacco Screening 03/07/2026 03/07/2025 Colorectal Cancer Screening 01/03/2028 FIT DNA/Cologuard 01/03/2028 01/02/2025 Lipid Panel 05/25/2029 05/25/2024 Hepatitis C Screening Completed 08/16/2024 , 05/25/2024 Hepatitis B Vaccines Completed 01/03/2025, 10/11/2024 HIB Vaccines Aged Out No longer eligi [...] patient's age to complete this topic Meningococcal B Vaccine Aged Out No l onger eligible based on patient's age to complete [...] Procedure Name Priority Date/Time Associated Diagnosis Comments MAGNESIUM Routine 01/02/2025 12:35 PM EDT Cramps of left lower extremity COMPREHENSIVE METABOLIC PANEL Routine 01/02/2025 12:35 PM EDT Cramps of left lower extremity LAB COLOGUARD COLON CANCER SCREEN Routine 01/02/2025 9:10 AM EDT Screening for colon cancer HEPATITIS C AB W/REFL TO HCV RNA, QN, PCR Routine 08/16/2024 3:03 PM EST RUQ pain LIPID PANEL, STANDARD Routine 05/25/2024 1:13 PM EST Uncontrolled hypertension from Last 3 Months or Most Recently Relevant to Health Maintenance Results * Magnesium (01/02/2025 12:35 PM EDT) Magnesium 2.3 1.6 - 2.6 mg/dL [facility] Blood Venous blood specimen / Unknown 01/02/2025 12:35 PM EDT 01/02/2025 12:56 PM EDT us Tanya Dobbs NP LAB BLOOD ORDERABLES Final Resul t [facility] [address] [place] [phone] * (ABNORMAL) Comprehensive Metabolic Panel (01/02/2025 12:35 PM EDT) Sodium 143 135 - 145 mmol/L [facility] Potassium 3.5 3.3 - 5.1 mmol/L [facility] Chloride 109(H) 96 - 108 mmol/L [facility] Carbon Dioxide 26 22 - 29 mmol/L [facility] Anion Gap 12 12 - 20 [facility] Urea Nitrogen (BUN) 14 9 - 16 mg/dL [facility] Creatinine, Serum 0.57 0.5 - 1.4 mg/dL [facility] Estimated Glomerular Filt Rate >60 [facility] Comment:Chronic Kidney Disea se: Estimated GFR < 60 mL/min/1.23k3Onqrbc Kidney Disease: Estimated GFR < 15 mL/min/1.73m2 Glucose 101 60 - 115 mg/dL [facility] Calcium 9.0 8.4 - 10.2 mg/dL [facility] Bilirubin, Total 0.4 0.0 - 1.0 mg/dL [facility] Aspartate Amino Transferase 20 5 - 31 U/L [facility] Alanine Aminotransferase 23 0 - 31 U/L [facility] Total Protein 7.5 6.5 - 8.0 g/dL [facility] Albumin Level 4.7 3.5 - 5.0 g/dL [facility] Alkaline Phosphatase 93 39 - 117 U/L [facility] Blood Venous blood specimen / Unknown 01/02/2025 12:35 PM EDT 01/02/2025 12:56 PM EDT us Tanya Dobbs [employer] SAL[employer] LAB BLOOD ORDERABLES Final Resul t [facility] [address] [place] [address] [phone] * Cologuard?? colon cancer screening (01/02/2025 9:10 AM EDT) Cologuard Result Negative Negative 01/07/20 8:47 AM EDT [employer] (CLIA #:[id number]) Comment: The Cologuard (TM) test was performed on this specimen. NEGATIVE TEST RESULT. A negative Cologuard result indicates a low likelihood that a colorectal cancer (CRC) or advanced adenoma (adenomatous polyps with more advanced pre-malignant features) is present. The chance that a person with a negative Cologuard test has a colorectal cancer is less than 1 in 1500 (negative predictive value >99.9%) or has an advanced adenoma is less than 5.3% (negative predictive value 94.7%). These data are based on a prospective cross-sectional study of 10,000 individuals at average risk for colorectal cancer who were screened with both Cologuard and colonoscopy. (Gomez Rangel, N Engl J Med 2014;370(14):1286- 1297) The normal value (reference range) for this assay is negative. COLOGUARD RE-SCREENING RECOMMENDATION: Periodic colorectal cancer screening is an important part of preventive healthcare for asymptomatic individuals at average risk for colorectal cancer. Following a negative Cologuard result, the [place] Cancer Society and U.S. Multi-Society Task Force screening guidelines recommend a Cologuard re-screening interval of 3 years. References: [place] Cancer Society Guideline for Colorectal Cancer Screening: https://www.cancer.org/cancer/zyivu-cqyeyi-lntowy/bxlstnipl-zbicjnoww-rroqhkj/ac s-rec ommendations.html.; Tyrone DK, Wilfredo MONROE, Ritu AhumadaK, Colorectal Cancer Screening: Recommendations for Physicians and Patients from the U.S. Multi-Society Task Force on Colorectal Cancer Screening , Am J Gastroenterology 2017; 112:3882-3337. TEST DESCRIPTION: Composite algorithmic analysis of stool DNA-biomarkers with hemoglobin immunoassay. Quantitative values of individual biomarkers are not reportable and are not associated with individual biomarker result reference ranges. Cologuard is intended for colorectal cancer screening of adults of either sex, 45 years or older, who are at average-risk for colorectal cancer (CRC). Cologuard has been approved for use by the U.S. FDA. The performance of Cologuard was established in a cross sectional study of average-risk adults aged 50-84. Cologuard performance in patients ages 45 to 49 years was estimated by sub-group analysis of near-age groups. Colonoscopies performed for a positive result may find as the most clinically significant lesion: colorectal cancer [4.0%], advanced adenoma (including sessile serrated polyps greater than or equal to 1cm diameter) [20%] or non- advanced adenoma [31%]; or no colorectal neoplasia [45%]. These estimates are derived from a prospective cross-sectional screening study of 10,000 individuals at average risk for colorectal cancer who were screened with both Cologuard and colonoscopy. (Gomez Rangel, N Engl J Med 2014;370(14):6750-0298.) Cologuard may produce a false negative or false positive result (no colorectal cancer or precancerous polyp present at colonoscopy follow up). A negative Cologuard test result does not guarantee the absence of CRC or advanced adenoma (pre-cancer). The current Cologuard screening interval is every 3 years. ([place] Cancer Society and U.S. Multi-Society Task Force). Cologuard performance data in a 10,000 patient pivotal study using colonoscopy as the reference method can be accessed at the following location: www.[employer]/results. Additional description of the Cologuard test process, warnings and precautions can be found at www.[employer].com. Stool specimen (specimen) 01/02/2025 9:10 AM EDT 01/03/2025 12:39 PM EDT Tanya Dobbs NP LAB MOLECULAR DIAGNOSTICS ORDERA BLES Final Result Performing Organization Address [facility] Co de Phone Number [employer] (CLIA #:[id number]) [address] [place] [address], * Hepatitis C Antibody with Reflex to HCV, RNA, Quantitative, Real-Time PCR (08/16/2024 3:03 PM EST) Hepatitis C Antibody Nonreactive Nonreactive [facility] Comment:Antibodies to HCV no t detected; does not exclude early acuteHCV infection. Blood Venous blood specimen / Unknown 08/16/2024 3:03 PM EST 08/16/2024 4:06 PM EST Tanya Dobbs NP LAB BLOOD ORDERABLES Final Resul t Performing Organization Address [facility] Co de Phone Number [facility] [address] [place] [address] [phone] * (ABNORMAL) Lipid Panel, Standard (05/25/2024 1:13 PM EST) Triglycerides 339(H) <150 mg/dL [facility] Comment:Desirable Triglyceri de: less than 150 mg/dLBorderline High Triglyceride 150-199 mg/dLHigh Triglyceride: 200-499 mg/dLVery High Triglyceride: greater than or equal to 5OO mg/dL Cholesterol 199 <200 mg/dL [facility] Comment:Desirable Cholestero l: less than 200 mg/dLBorderline High Cholesterol: 200-239 mg/dLHigh Cholesterol: greater than 239 mg/dL LDL Cholesterol Calculated 95 <100 mg/dL [facility] Comment:Desirable LDL: less than 100 mg/dLNear Optimal/Above Optimal LDL: 110- 129 mg/dLBorderline High LDL: 130-159 mg/dLHigh LDL: 160-189 mg/dLVery High LDL: greater than or equal to 190 mg/dL HDL Cholesterol 37(L) >40 mg/dL [facility] Comment:Desirable HDL: great er than 40 mg/dL Note: This HDL assay may give artificially low results in patients with liver disease. Blood Venous blood specimen / Unknown 05/25/2024 1:13 PM EST 05/25/2024 4:08 PM EST Shala Hawk MD LAB BLOOD ORDERABLES Final Result [facility] [address] [place] [phone] [phone] from Last 3 Months or Most Recently Relevant to Health Maintenance Insurance [employer] HS FULL Care Teams Tubing Assembler Relationship Specialty Start Date End Date Tanya Dobbs NP [address] [place] [phone] PCP - General Family Medicine 08/16/24
--- OUTSIDE RECORDS SUMMARY | 2025-03-14 09:21 | XMS_ITS | Encounter Summary ---
Author Organization [employer] Address [address] [facility] [address] [place] [address] Care Team Providers Care Decorating Machine Tender Name Role Phone Tanya Dobbs CLINICAL ASSESSMENT MANAGER Primary Care Provider [phone] Reason for Visit * Reason Comments Med Refill Encounter Details Date Type Department Care Team (Late st Contact Info) Description 06/16/2024 Refill [facility] [address] [place] [phone] Anay Reece MD [address] [place], [place] [phone] Social History Tobacco Use Types Packs/Day Years [...] Description 04/24/2025 11:15 AM EDT Office Visit [facility] OPTOMETRY [address] [place] [address] Verito Hooper OD [address] [place] [address] 05/22/2025 9:30 AM EST Office Visit [facility] [address] [place] [phone] Tanya Dobbs NP [address] [place] [address] documented as of this encounter Visit Diagnoses Not on filedocumented in this encounter Care Teams Decorating Machine Tender Relationship Specialty Start Date End Date Tanya Dobbs NP [address] [place] [phone] PCP - General Family Medicine 08/16/24 documented as of this encounter
--- OUTSIDE RECORDS SUMMARY | 2025-03-14 09:21 | XMS_ITS | Clinical Summary ---
Author Organization [facility] Address [address] [facility] [address] [place] [phone] Phone Care Team Providers Care Fountain Operator Name Role Phone Unavailable Primary Care Provider Unavailabl e Allergies No known active allergies Active Problems No known active problems Encounters Date Type Department Care Team Description 03/08/2025 Transcribe Orders [facility] [address] [place] [address] Tanya Dobbs NP Encounter for rehabilitation (Primary Dx) from Last 3 Months Social History Tobacco Use Types Packs/Day Years Used Date Smoking Tobacco: Never Assessed Education Answer Date Recorded Are you interested in more education? Not on artie e 05/07/2023 Are you concerned about learning? Not on file 05/07/2023 No 05/07/2023 No 05/07/2023 Digital Access Answer Date Recorded No 05/07/2023 No 05/07/2023 Reliable internet access at home? Not on file 05/07/2023 Device with a working camera? Not on file Comments Unknown Sex and Gender Information Value Date Recorded Sex Assigned at Not on file Legal Sex Female 4:42 PM EDT Gender Identity Not on file Sexual Orientation Not on file Last Filed Vital Signs Vital Sign Reading Time Taken Comments Blood Pressure 214/91 05/07/2023 5:10 PM EDT Pulse 91 05/07/2023 5:10 PM EDT Temperature 37.6 C (99.6 F) 05/07/2023 5:10 PM EDT Respiratory Rate 16 05/07/2023 5:10 PM EDT Oxygen Saturation 97% 05/07/2023 5:10 PM EDT Inhaled Oxygen Concentration - - Weight 45 kg (99 lb 3.3 oz) 05/07/2023 5:10 PM E DT Height 150 cm (4' 11.06 ) 05/07/2023 5:10 PM EDT Body Mass Index 20 05/07/2023 5:10 PM EDT Plan of Treatment Health Maintenance Due Date Last Done Comments Adult Td,Tdap Booster 1955 LIPID PANEL 1957 DEPRESSION SCREENING 1969 SMOKING Hx and SMOKELESS TOB ACCO SCREENING 1970 HEPATITIS C SCREENING 12/15/1975 MAMMOGRAM 1997 COLOGUARD 2002 COLONOSCOPY 2002 COLORECTAL CANCER SCREENING 2002 FIT TEST 2002 FOBT 2002 SIGMOIDOSCOPY 2002 VIRTUAL COLONOSCOPY 2002 PNEUMOCOCCAL VACCINES (50+ y ears) (1 of 1 - PCV) 12/15/2007 ZOSTER VACCINES (1 of 2) 12/15/2007 OSTEOPOROSIS SCREENING INITI AL (ONE-TIME) 2022 COVID-19 VACCINE ( - 2023-2 5 season) 2024 RSV VACCINE (1 - 1-dose 75+ series) 2032 HEPATITIS A VACCINES Aged Out No long er eligible based on patient's age to complete this topic HIB VACCINES Aged Out No longer eligi ble based on patient's age to complete this topic MENINGOCOCCAL VACCINES (ACWY) Aged Out No longer eligible based on patient's age to complete this topic MENINGOCOCCAL VACCINES (B) Aged Out N o longer eligible based on patient's age to complete this topic Medical Devices Not on file Additional Source Comments The information contained in this document represents components of the legal health record. It is not the complete legal health record.[facility]
== END ==
LOC: HO.CARD 09:01
PROVIDERS: Visit Provider Nurse Practitioner Family
DX: R01.1 Cardiac murmur, unspecified (principal)
CPT/HCPCS: 93306

== ENCOUNTER → 2025-03-14 09:08 | Outpatient (BNV) | payer SELFPAY | PROVIDERS: Visit Provider Internal Medicine | DX: I35.2 Nonrheumatic aortic (valve) stenosis with insufficiency (principal); R01.1 Cardiac murmur, unspecified | CPT/HCPCS: 93306 ==

== ENCOUNTER 2025-05-08 13:05 | Outpatient (REF) | payer MEDICAID, OTHER, SELFPAY ==
--- NOTE | ~2025-05-08 | US_ITS ---
EXAMINATION: ULTRASOUND SOFT TISSUE NONINVASIVE AND LIMITED. CLINICAL INFORMATION: Left scapula region mild medial soft tissue mass concerning lipoma. TECHNIQUE: Real-time ultrasound of the region of concern using linear transducer with grayscale and color Doppler technique.. COMPARISON: None FINDINGS: There is a well-defined, 3.9 x 1.3 x 3.4 cm homogeneous echogenic soft tissue lesion beneath the skin in the region of concern without flow on color Doppler interrogation. No calcification or cystic components. US/US Extremity Nonvas Limited LT IMPRESSION: Probable 3.9 cm lipoma. Electronically signed by: Dennis Rivera MD 05/08/2025 03:02 PM EDT
== END 2025-05-08 13:06 | disposition home or self-care (01) ==
LOC: HO.US 13:05
PROVIDERS: PCP Nurse Practitioner Family; Visit Provider Nurse Practitioner Family
DX: D17.22 Benign lipomatous neoplasm of skin and subcutaneous tissue of left arm (principal)
CPT/HCPCS: 76882

== ENCOUNTER → 2025-05-08 13:08 | Outpatient (BNV) | payer SELFPAY | PROVIDERS: PCP Nurse Practitioner Family; Visit Provider Radiology Diagnostic Radiology | DX: M79.9 Soft tissue disorder, unspecified (principal) | CPT/HCPCS: 76882 ==

== ENCOUNTER 2025-05-09 11:20 | Outpatient (REF) | payer MEDICAID, OTHER, SELFPAY ==
--- NOTE | ~2025-05-09 | MM_ITS ---
EXAMINATION: MM SCREENING DIGITAL BREAST TOMOSYNTHESIS, BILATERAL CLINICAL INFORMATION: Screening. Asymptomatic. COMPARISON: Mammography: Baseline. TECHNIQUE: Digital breast mammography with tomosynthesis is performed in both the craniocaudal and mediolateral oblique views along with computer-aided detection (CAD). FINDINGS: There are scattered areas of fibroglandular density. There are no significant masses, abnormal calcifications, or other abnormalities. MM/MM tomosynthesis screening BI IMPRESSION: No mammographic evidence of malignancy. ASSESSMENT: BI-RADS Category 1: Negative RECOMMENDATION: Routine annual mammography screening. 1 year F/U This examination should not preclude the clinical evaluation of a suspicious palpable abnormality. This patient's information was entered into a reminder system with a target due date for their next mammogram. Electronically signed by: Fabiola Samuel DO 05/12/2025 05:23 PM EDT
--- NOTE | ~2025-05-09 | MM_ITS ---
EXAMINATION: DXA BONE DENSITY AXIAL HISTORY: post menopausal, TECHNIQUE: [place] Dual energy absorptiometry (DEXA) of the lumbar spine, total left hip, and femoral neck was performed. COMPARISON: There are no prior studies for comparison. FINDINGS: The bone mineral density of the lumbar spine is 0.683 g/cm2, corresponding to a T-score of -4.3, and a Z-score of -2.4. This is indicative of osteoporosis. The bone mineral density of the left total hip is 0.796 g/cm2, corresponding to a T-score of -1.7, and a Z-score of -0.2. This is indicative of osteopenia. The bone mineral density of the left femoral neck is 0.815 g/cm2, corresponding to a T-score of -1.6, and a Z-score of 0.1. This is indicative of osteopenia. FRACTURE RISK: The FRAX index suggests a risk of major osteoporotic fracture of 5.5%, and of hip fracture 0.7%. MM/XR DEXA axial skeleton IMPRESSION: Based on bone mineral density, and according to World Health Organization (WHO) criteria, the diagnosis is consistent with osteoporosis. Statistically, 68% of repeat scans fall within 1 SD (+/- 0.010 g/cm2 for AP spine L1-L4) and 1 SD (+/- 0.012 g/cm2 for femur total) FRAX is a trademark of the [employer] [place] [employer] Met[employer] Disease, a World Health Organization (WHO) Collaborating Center. Electronically signed by: Emil Ford MD 05/09/2025 11:53 AM EDT
--- OUTSIDE RECORDS SUMMARY | 2025-05-09 14:24 | XMS_ITS | Clinical Summary ---
Author Organization [facility] Address [address] [facility] [address] [place] [phone] Phone Care Team Providers Care Epic Be[facility] Name Role Phone Unavailable Primary Care Provider Unavailabl e Allergies No known active allergies Active Problems No known active problems Encounters Date Type Department Care Team Description 03/08/2025 Transcribe Orders [facility] [address] [place] [address] Tanya Dobbs NP Encounter for rehabilitation (Primary [...] 12/15/2007 OSTEOPOROSIS SCREENING INITI AL (ONE-TIME) 2022 INFLUENZA VACCINE (#1) 2025 COVID-19 VACCINE (1 - 2024-2 6 season) 2025 RSV VACCINE (1 - 1-dose 75+ series) [...] It is not the complete legal health record.[facility]
--- OUTSIDE RECORDS SUMMARY | 2025-05-09 14:24 | XMS_ITS | Encounter Summary ---
Author Organization [employer] Address [address] [place] [address] Care Team Providers Care Motor Expert Name Role Phone Tanya Dobbs NP Primary Care Provider [phone] Encounter Details Date Type Department Care Team (Late st Contact Info) Description 05/08/2025 Orders Only [facility] [address] [place], [place] [phone] Tanya Dobbs NP [address] [place], [place] [phone] Social History Tobacco Use Types Packs/Day Years [...] your housing situation today? I have mariana sing 08/16/[address] you li [...] Care Team (Late st Contact Info) Description 05/22/2025 9:30 AM EST Office Visit [facility] [address] [place] [address] Tanya Dobbs NP [address] [place], [place] [phone] documented as of this encounter Procedures Procedure Name Priority Date/Time Associated Diagnosis Comments US EXTREMITY NON VASCULAR LEFT LIMITED Routine 05/08/2025 1:10 PM EDT documented in this encounter Results * US Extremity Non Vascular Left Limited (05/08/2025 1:10 PM EDT) Anatomical Region Laterality Modality Ultrasound 05/08/2025 1:10 PM EDT Narrative 05/08/2025 3:04 PM EDT [address] [address] Ultrasound Report Signed Patient: Rochelle Mir MR#: [id number] : 1955 Acct:[id number] Age/Sex: 69 / F ADM Date: 05/08/25 Loc: HO.US Attending Dr: Tanya Dobbs GROUP CAPTAIN Ordering Physician: Tanya Dobbs NP Date of Service: 05/08/25 Procedure(s): US Extremity Nonvas Limited LT Accession Number(s): [id number] cc: Tanya Dobbs NP Reason for Exam: LEFT SCAPULA REGION, MOBILE SOFT MASS, ESTIMATED 4-6 CM SUSPECT LIPOMA EXAMINATION: ULTRASOUND SOFT TISSUE NONINVASIVE AND LIMITED. CLINICAL INFORMATION: Left scapula region mild medial soft tissue mass concerning lipoma. TECHNIQUE: Real-time ultrasound of the region of concern using linear transducer with grayscale and color Doppler technique.. COMPARISON: None FINDINGS: There is a well-defined, 3.9 x 1.3 x 3.4 cm homogeneous echogenic soft tissue lesion beneath the skin in the region of concern without flow on color Doppler interrogation. No calcification or cystic components. US/US Extremity Nonvas Limited LT IMPRESSION: Probable 3.9 cm lipoma. Electronically signed by: Dennis Rivera MD 05/08/2025 03:02 PM EDT RP Dictated By: Dennis Quesada MD Signed By: <Electronically signed by Dennis Linn MD in OV> 05/08/25 1502 DD/ 1310 TD/TT: 05/08/25 1312 Turner In: Procedure Note Donotuseinterpreter, Image - 05/08/2025 [place] [address] Ultrasound Report Signed Patient: Rochelle Mir MR#: [id number] : 8Acct:[id number] Age/Sex: 69 / FADM Date: 05/08/25 Loc: HO.US Attending Dr: Tanya Dobbs GROUP CAPTAIN Ordering Physician: Tanya Dobbs NP Date of Service: 05/08/25 Procedure(s): US Extremity Nonvas Limited LT Accession Number(s): [id number] cc: Tanya Dobbs NP Reason for Exam: LEFT SCAPULA REGION, MOBILE SOFT MASS, ESTIMATED 4-6 CMSUSPECT LIPOMA EXAMINATION: ULTRASOUND SOFT TISSUE NONINVASIVE AND LIMITED. CLINICAL INFORMATION: Left scapula region mild medial soft tissue mass concerning lipoma. TECHNIQUE: Real-time ultrasound of the region of concern using linear transducer with grayscale and color Doppler technique.. COMPARISON: None FINDINGS: There is a well-defined, 3.9 x 1.3 x 3.4 cm homogeneous echogenic soft tissue lesion beneath the skin in the region of concern without flow on color Doppler interrogation. No calcification or cystic components. US/US Extremity Nonvas Limited LT IMPRESSION: Probable 3.9 cm lipoma. Electronically signed by: Dennis Rivera MD 05/08/2025 03:02 PM EDT RP Dictated By: Dennis Quesada MD Signed By: <Electronically signed by Dennis Linn MDin OV> 05/08/25 1502 DD/ 1310 TD/TT: 05/08/25 1312 Turner In: us Tanya Dobbs NP IMOlya US PROCEDURES Edited Result - Final documented in this encounter Visit Diagnoses Not on filedocumented in this encounter Additional Health Concerns Assessment Noted Time PHQ-9 Depression Total Score: 3 10/01/19 3:05 PM EDT documented as of this encounter Care Teams Motor Expert Relationship Specialty Start Date End Date Tanya Dobbs NP [address] [place] [address] PCP - General Family Medicine 08/16/24 documented as of this encounter
--- OUTSIDE RECORDS SUMMARY | 2025-05-09 14:25 | XMS_ITS | Clinical Summary ---
Author Organization [employer] Address [address] [facility] 7[address] [place] [address] Care Team Providers Care Batch Unloader Name Role Phone ElbaTanya munoz LESLI Primary Care Provider Allergies No known active allergies Medications atorvastatin (Lipitor) 10 MG tabletIndication s:Uncontrolled hypertension Take 1 tablet (10 mg) by mouth Once per day. 30 tablet 05/25/20 24 Active lisinopril (Prinivil) 20 MG tabletIndication s:Primary hypertension Take 1 tablet (20 mg) by mouth Once per day. 30 tablet 05/25/20 24 Active Blood Pressure Monitoring (Blood Pressure Cuff) misc 1 kit Once per day. 1 each 08/16/19 25 Active amLODIPine (Norvasc) 10 MG tablet Take 1 tablet (10 mg) by mouth Once per day. 90 tablet 3 08/16/19 25 026 Active famotidine (Pepcid) 20 MG tablet Take 1 tablet (20 mg) by mouth 2 times daily. 60 tablet 11 10/01/19 25 026 Active aspirin 81 MG EC tablet Take 1 tablet (81 mg) by mouth Once per day. 30 tablet 11 04/24/20 25 026 Active acetaminophen (Tylenol Extra Strength) 500 MG tablet Take 2 tabs 3 times a day x 5 days then as needed 30 tablet 04/24/20 25 Active aspirin 81 MG EC tablet Take 1 tablet (81 mg) by mouth Once per day. 30 tablet 10/01/19 25 025 Discontinued(Re order (will not trigger notification to Pharmacy)) Active Problems Problem Noted Date Diagnosed Date Muscular chest pain 04/26/2025 Dietary counseling 03/07/2025 Assessment & Plan (03/07/2025 [...] Encounters Date Type Department Care Team Description 05/09/2025 Results Follow-Up [facility] [address] [place] [address] Maribell Curiel, RN US Extremity Non Vascular Left Limited 05/08/2025 Orders Only [facility] [address] [place] [address] Tanya Dobbs NP 04/24/2025 11:15 AM EDT Office Visit [facility] OPTOMET[facility] [address] [place] [address] Sandie Verito, OD Presbyopia (Primary Dx); Combined forms of age-related cataract of both eyes; Pterygium of left eye 04/24/2025 10:15 AM EDT Office Visit [facility] [address] [place] [address] Mary Escalante FNP Muscular chest pain (Primary Dx); Uncontrolled hypertension 04/24/2025 Travel 03/07/2025 11:30 AM EDT Office Visit [facility] [address] [place] [address] Tanya Dobbs NP Primary hypertension (Primary Dx); Bruit of right carotid artery; Aortic stenosis, moderate; Dietary counseling; Exercise counseling; Post menopausal syndrome; Lipoma of left upper extremity; Encounter for screening mammogram for malignant neoplasm of breast; Cervicalgia 03/07/2025 Travel 03/06/2025 Telephone [facility] [address] [place] [address] Tanya Dobbs NP Chart Prep from Last 3 Months Immunizations Immunization Administration [...] the past 12 months, has t he [employer], gas, oil or water company threatened to [...] Sign Reading Time Taken Comments Blood Pressure 162/80 04/24/2025 10:18 AM EDT w out meds Pulse 88 04/24/2025 10:18 AM EDT Temperature 37.1 C (98.7 F) 04/24/2025 10:18 AM EDT Respiratory Rate 17 04/24/2025 10:18 AM EDT Oxygen Saturation 98% 04/24/2025 10:18 AM EDT Inhaled Oxygen Concentration - - Weight 58.5 kg (129 lb) 04/24/2025 10:18 AM EDT Height 149.9 cm (4' 11 ) 04/24/2025 10:18 AM EDT Body Mass Index 26.05 04/24/2025 10:18 AM EDT Plan of Treatment Upcoming Encounters Date Type Department Care Team (Late st Contact Info) Description 05/22/2025 9:30 AM EST Office Visit [facility] [address] [place], [place] [phone] Tanya Dobbs NP [address] [place] [address] Health Maintenance Due Date Last Done Comments CT Colonography 1957 Colonoscopy 1957 FIT 1957 Sigmoidoscopy 1957 DTaP/Tdap/Td Vaccines (1 - Tdap) 1976 Pneumococcal Vaccine: 50+ Years (1 of 2 - PCV) 1976 Mammogram 1997 Zoster Vaccines (1 of 2) 12/15/2007 RSV Patients and Patients Aged 60 years or older (1 - Risk 60-74 years 1-dose series) 2017 COVID-19 Vaccine ( - 2023-2 5 season) 2025 Influenza Vaccine (#1) 2025 Alcohol/Substance Use Screening 08/16/2025 08/16/2024 SDOH Screening 08/16/2025 08/16/2024 Depression Screening 09/30/2025 09/30/2024, 09/30/2024 FOBT 01/02/2026 01/02/2025 Tobacco Screening 04/24/2026 04/24/2025 Colorectal Cancer Screening 01/03/2028 FIT DNA/Cologuard 01/03/2028 [...] Procedure Name Priority Date/Time Associated Diagnosis Comments BD DEXA AXIAL Routine 05/09/2025 11:48 AM EDT Post menopausal syndrome US EXTREMITY NON VASCULAR LEFT LIMITED Routine 05/08/2025 1:10 PM EDT TRANSTHORACIC ECHO (TTE) COMPLETE Routine 03/14/2025 [facility] LAB COLOGUARD COLON CANCER SCREEN Routine 01/02/2025 9:10 AM EDT Screening for colon cancer HEPATITIS C AB W/REFL TO HCV RNA, QN, PCR Routine 08/16/2024 3:03 PM EST RUQ pain LIPID PANEL, STANDARD Routine 05/25/2024 1:13 PM EST Uncontrolled hypertension from Last 3 Months or Most Recently Relevant to Health Maintenance Results * BD DEXA Axial (05/09/2025 11:48 AM EDT) Anatomical Region Laterality Modality Body Radiographic Eli ging 05/09/2025 11:4 8 AM EDT Narrative 05/09/2025 11:55 AM EDT [facility] [address] [place] [address] Mammography Report Signed Patient: Rochelle Mir MR#: [id number] : 1955 Acct:[id number] Age/Sex: 69 / F ADM Date: 05/09/25 Loc: HO.MAMMO Attending Dr: Tanya Dobbs MOLDER LABELS Ordering Physician: Tanya Dobbs NP Results: Date of Service: 05/09/25 Follow Up: Procedure(s): XR DEXA axial skeleton Accession Number(s): [id number] cc: Tanya Dobbs NP Reason For Exam: post menopausal, EXAMINATION: DXA BONE DENSITY AXIAL HISTORY: post menopausal, TECHNIQUE: Watch-Sites Dual energy absorptiometry (DEXA) of the lumbar spine, total left hip, and femoral neck was performed. COMPARISON: There are no prior studies for comparison. FINDINGS: The bone mineral density of the lumbar spine is 0.683 g/cm2, corresponding to a T-score of -4.3, and a Z-score of -2.4. This is indicative of osteoporosis. The bone mineral density of the left total hip is 0.796 g/cm2, corresponding to a T-score of -1.7, and a Z-score of -0.2. This is indicative of osteopenia. The bone mineral density of the left femoral neck is 0.815 g/cm2, corresponding to a T-score of -1.6, and a Z-score of 0.1. This is indicative of osteopenia. FRACTURE RISK: The FRAX index suggests a risk of major osteoporotic fracture of 5.5%, and of hip fracture 0.7%. MM/XR DEXA axial skeleton IMPRESSION: Based on bone mineral density, and according to World Health Organization (WHO) criteria, the diagnosis is consistent with osteoporosis. Statistically, 68% of repeat scans fall within 1 SD (+/- 0.010 g/cm2 for AP spine L1-L4) and 1 SD (+/- 0.012 g/cm2 for femur total) FRAX is a trademark of the [employer]'s [place] for Metabolic Bone Disease, a World Health Organization (WHO) Collaborating Center. Electronically signed by: Emil Ford MD 05/09/2025 11:53 AM EDT RP Dictated By: Emil Ford MD Signed By: <Electronically signed by Emil Ford MD in OV> 05/09/25 1153 DD/ 1148 TD/TT: 05/09/25 1145 Baby Registry Sales Consultant: Procedure Note Donotuseinterpreter, Image - 05/09/2025 [facility] [address] [place] [address] [place] [address] Mammography Report Signed Patient: Rochelle Mir MR#: [id number] : 8Acct:[id number] Age/Sex: 69 / FADM Date: 05/09/25 Loc: HO.MAMMO Attending Dr: Tanya Dobbs NP Ordering Physician: Tanya Dobbs NPResults: Date of Service: 05/09/25Follow Up: Procedure(s): XR DEXA axial skeleton Accession Number(s): [id number] cc: Tanya Dobbs NP Reason For Exam: post menopausal, EXAMINATION: DXA BONE DENSITY AXIAL HISTORY: post menopausal, TECHNIQUE: Watch-Sites Dual energy absorptiometry (DEXA) of the lumbar spine, total left hip, and femoral neck was performed. COMPARISON: There are no prior studies for comparison. FINDINGS: The bone mineral density of the lumbar spine is 0.683 g/cm2, corresponding to a T-score of -4.3, and a Z-score of -2.4. This is indicative of osteoporosis. The bone mineral density of the left total hip is 0.796 g/cm2, corresponding to a T-score of -1.7, and a Z-score of -0.2. This is indicative of osteopenia. The bone mineral density of the left femoral neck is 0.815 g/cm2, corresponding to a T-score of -1.6, and a Z-score of 0.1. This is indicative of osteopenia. FRACTURE RISK: The FRAX index suggests a risk of major osteoporotic fracture of 5.5%, and of hip fracture 0.7%. MM/XR DEXA axial skeleton IMPRESSION: Based on bone mineral density, and according to World Health Organization (WHO) criteria, the diagnosis is consistent with osteoporosis. Statistically, 68% of repeat scans fall within 1 SD (+/- 0.010 g/cm2 for AP spine L1-L4) and 1 SD (+/- 0.012 g/cm2 for femur total) FRAX is a trademark of the [employer] [place] for Metabolic Bone Disease, a World Health Organization (WHO) Collaborating Center. Electronically signed by: Emil Ford MD 05/09/2025 11:53 AM EDT Dictated By: Emil Ford MD Signed By: <Electronically signed by Emil Ford MD in OV> 05/09/25 1153 DD/ 1148 TD/TT: 05/09/25 1145 Baby Registry Sales Consultant: us Tanya Dobbs MOLDER LABELS IMG DXA PROCEDURES Edited Result - Final * US Extremity Non Vascular Left Limited (05/08/2025 1:10 PM EDT) Anatomical Region Laterality Modality Ultrasound 05/08/2025 1:10 PM EDT Narrative 05/08/2025 3:04 PM EDT [address] [address] Ultrasound Report Signed Patient: Rochelle Mir MR#: [id number] : 1955 Acct:[id number] Age/Sex: 69 / F ADM Date: 05/08/25 Loc: HO.US Attending Dr: Tanya Dobbs NP Ordering Physician: Tanya Dobbs NP Date of Service: 05/08/25 Procedure(s): US Extremity Nonvas Limited LT Accession Number(s): [id number] cc: Tanya Dobbs NP Reason for Exam: [...] Dennis Rivera MD 05/08/2025 03:02 PM EDT Dictated By: Dennis Quesada MD Signed By: <Electronically signed by Dennis Linn MD in OV> 05/08/25 1502 DD/ 1310 TD/TT: 05/08/25 1312 Baby Registry Sales Consultant: Procedure Note Donotuseinterpreter, Image - 05/08/[address] [address] Ultrasound Report Signed Patient: Rochelle Mir MR#: [id number] : 8Acct:[id number] Age/Sex: 69 / FADM Date: 05/08/25 Loc: HO.US Attending Dr: Tanya Dobbs NP Ordering Physician: Tanya Dobbs NP Date of Service: 05/08/25 Procedure(s): US Extremity Nonvas Limited LT Accession Number(s): [id number] cc: Tanya Dobbs NP Reason for Exam: [...] Dennis Rivera MD 05/08/2025 03:02 PM EDT Dictated By: Dennis Quesada MD Signed By: <Electronically signed by Dennis Linn MDin OV> 05/08/25 1502 DD/ 1310 TD/TT: 05/08/25 1312 Baby Registry Sales Consultant: us Tanya Dobbs NP IMG US PROCEDURES Edited Result - Final * Transthoracic Echo (TTE) Complete (03/14/2025) us Tanya Dobbs NP CV ECHO PROCEDURES Final Result * Cologuard?? colon cancer screening (01/02/2025 9:10 AM EDT) Cologuard Result Negative Negative 01/07/20 8:47 AM EDT [facility] (CLIA #:[id number]) Comment: The Cologuard (TM) test was performed [...] screened with both Cologuard and colonoscopy. (Gomez Villagran et al, N Engl J Med 2014;370(14):1286- 1297) The normal value (reference range) for this assay is negative. COLOGUARD RE-SCREENING RECOMMENDATION: Periodic colorectal cancer screening is an important part of preventive healthcare for asymptomatic individuals at average risk for colorectal cancer. Following a negative Cologuard result, the [place] Cancer Society and U.S. Multi-Society Task Force screening guidelines recommend a Cologuard re-screening interval of 3 years. References: [place] [employer] Guideline for Colorectal Cancer Screening: https://www.cancer.org/cancer/chhhz-yocpvr-lgmucd/lwxuwjhnd-hjliunnrd-dorfonk/ac s-rec ommendations.html.; Tyrone LAO, Wilfredo CR, Ritu AhumadaK, Colorectal Cancer Screening: Recommendations for Physicians and Patients from the U.S. Multi-Society Task Force on Colorectal Cancer Screening , Am J Gastroenterology 2017; 112:4405-8368. TEST DESCRIPTION: Composite algorithmic analysis of stool [...] screened with both Cologuard and colonoscopy. (Gomez Romero. et al, N Engl J Med 2014;370(14):2811-4381.) Cologuard may produce a false negative or false positive result (no colorectal cancer or precancerous polyp present at colonoscopy follow up). A negative Cologuard test result does not guarantee the absence of CRC or advanced adenoma (pre-cancer). The current Cologuard screening interval is every 3 years. ([place] [employer] Society and U.S. Multi-Society Task Force). Cologuard performance data in a 10,000 patient pivotal study using colonoscopy as the reference method can be accessed at the following location: www.[employer]/results. Additional description of the Cologuard test process, warnings and precautions can be found at www.[employer]ancialoguard.com. Stool specimen (specimen) 01/02/2025 9:10 AM EDT 01/03/2025 12:39 PM EDT us Tanya Dobbs NP LAB MOLECULAR DIAGNOSTICS ORDERA BLES Final Result [facility] (CLIA #:[id number]) [address] [place], [place] [address], * Hepatitis C Antibody with Reflex to HCV, RNA, Quantitative, Real-Time PCR (08/16/2024 3:03 PM EST) Hepatitis C Antibody Nonreactive Nonreactive [facility] Comment:Antibodies to HCV no t detected; does not exclude early acuteHCV infection. Blood Venous blood specimen / Unknown 08/16/2024 3:03 PM EST 08/16/2024 4:06 PM EST us Tanya Dobbs NP LAB BLOOD ORDERABLES Final Resul t Performing Organization Address [facility] Co de Phone Number [facility] [address] [place] [phone] * (ABNORMAL) Lipid Panel, Standard (05/25/2024 1:13 PM EST) Triglycerides 339(H) <150 mg/dL [facility] Comment:Desirable Triglyceri de: less than 150 mg/dLBorderline High Triglyceride 150-199 mg/dLHigh Triglyceride: 200-499 mg/dLVery High Triglyceride: greater than or equal to 5OO mg/dL Cholesterol 199 <200 mg/dL [facility] Comment:Desirable Cholestero l: less than 200 mg/dLBorderline High Cholesterol: 200-239 mg/dLHigh Cholesterol: greater than 239 mg/dL LDL Cholesterol Calculated 95 <100 mg/dL [facility] Comment:Desirable LDL: less than 100 mg/dLNear Optimal/Above Optimal LDL: 110- 129 mg/dLBorderline High LDL: 130-159 mg/dLHigh LDL: 160-189 mg/dLVery High LDL: greater than or equal to 190 mg/dL HDL Cholesterol 37(L) >40 mg/dL [facility] Comment:Desirable HDL: great er than 40 mg/dL Note: This HDL assay may give artificially low results in patients with liver disease. Blood Venous blood specimen / Unknown 05/25/2024 1:13 PM EST 05/25/2024 4:08 PM EST us Shala Hawk MD LAB BLOOD ORDERABLES Final Result Performing Organization Address City/[facility]/ZIP Co de Phone Number [facility] [address] [place] [address] [phone] from Last 3 Months or Most Recently Relevant to Health Maintenance Insurance [facility] [employer] F[employer] Care Teams Batch Unloader Relationship Specialty Start Date End Date Tanya Dobbs NP [address] [place] [phone] PCP - General Family Medicine 08/16/24
--- OUTSIDE RECORDS SUMMARY | 2025-05-09 14:25 | XMS_ITS | Encounter Summary ---
Author Organization [facility] Address [address] [place] [address] Care Team Providers Care Courtroom Deputy Or Calendar Clerk Name Role Phone ElbaTanya munoz LESLI Primary Care Provider [phone] Encounter Details Date Type Department Care Team (Late st Contact Info) Description 05/09/2025 Results Follow-Up [facility] [address] [place], [place] [phone] Maribell Curiel RN US Extremity Non Vascular Left Limited Social History Tobacco Use Types Packs/Day Years [...] is your housing situation today? I have mariana[place]al [place] 08/16/[address] you [...] encounter Miscellaneous Notes * Telephone Encounter - Maribell Curiel RN - 05/09/2025 9:27 AM EDT Tc to pt via [employer] ID: [id number] to let them know per PCP Please let pt know ultrasound suggestslipoma (benign fatty growth) . Pt advised that there is no treatment unless it causing them discomfort or pain then it can be surgically removed. Pt advised if they noticed the lump getting bigger tocall our office to let us know. Pt verbalized understanding and agrees with plan. * Telephone Encounter - Maribell Curiel RN - 05/09/2025 9:27 AM EDT ----- Message from Tanya Dobbs sent at 05/08/2025 3:35 PM EDT ----- Please let pt know ultrasound suggests lipoma (benign fatty growth) - ----- Message ----- From: Interface, Ris Results In Sent: 05/08/2025 3:05 PM EDT To: Tanya Dobbs NP documented in this encounter Plan of Treatment Upcoming Encounters Date Type Department Care Team ([facility] st Contact Info) Description 05/22/2025 9:30 AM EST Office Visit [facility] MEDICINE [address] [place], [place] [phone] Tanya Dobbs NP [address] [place] [address] documented as of this encounter Visit Diagnoses Not on filedocumented in this encounter Additional Health Concerns Assessment Noted Time PHQ-9 Depression Total Score: 3 10/01/19 3:05 PM EDT documented as of this encounter Care Teams Courtroom Deputy Or Calendar Clerk Relationship Specialty Start Date End Date Tanya Dobbs NP [address] [place] [address] PCP - General Family Medicine 08/16/24 documented as of this encounter
--- OUTSIDE RECORDS SUMMARY | 2025-05-09 14:25 | XMS_ITS | Encounter Summary ---
Author Organization [employer] Address [address] [place] [address] Care Team Providers Care Frog Farmer Name Role Phone ElbaTanya munoz LESLI Primary Care Provider [phone] Reason for Visit * Reason Comments Med Refill Encounter Details Date Type Department Care Team (Late st Contact Info) Description 12/21/[address] [facility] [address] [place], [place] [phone] Shala Mata MD [address] [place], [place] [phone] Acute nonintractable headache, unspecified headache type Social [...] Description 05/22/2025 9:30 AM EST Office Visit [facility] [address] [place] [address] Tanya Dobbs NP [address] [place] [address] documented as of this encounter Visit Diagnoses Diagnosis Acute nonintractable headache, unspecified headache type documented in this encounter Additional Health Concerns Assessment Noted Time PHQ-9 Depression Total Score: 3 10/01/19 25 3:05 PM EDT documented as of this encounter Care Teams Frog Farmer Relationship Specialty Start Date End Date Tanya Dobbs NP [address] [place] [address] PCP - General Family Medicine 08/16/24 documented as of this encounter
--- OUTSIDE RECORDS SUMMARY | 2025-05-09 14:25 | XMS_ITS | Encounter Summary ---
Author Organization [employer] [facility] Address [address] [facility] [address] [place] [address] Care Team Providers Care Simulation Engineer Name Role Phone Tanya Dobbs NP Primary Care Provider [phone] Reason for Visit * Reason Comments Med Refill Encounter Details Date Type Department Care Team (Late Contact Info) Description 06/16/2024 Refill [facility] [address] [place] [phone] Anay Reece MD [address] [place] [address] Social History Tobacco Use Types Packs/Day Years [...] Department Care Team (Late Contact Info) Description 05/22/2025 9:30 AM EST Office Visit [facility] [address] [place] [phone] Tanya Dobbs NP [address] [place] [address] documented as of this encounter Visit Diagnoses Not on filedocumented in this encounter Care Teams Simulation Engineer Relationship Specialty Start Date End Date Tanya Dobbs NP [address] [place] [id number] PCP - General Family Medicine 08/16/24 documented as of this encounter
== END 2025-05-09 11:21 | disposition home or self-care (01) ==
LOC: HO.MAMMO 11:20
PROVIDERS: PCP Nurse Practitioner Family; Visit Provider Nurse Practitioner Family
DX: Z12.31 Encounter for screening mammogram for malignant neoplasm of breast (principal); Z13.820 Encounter for screening for osteoporosis; Z78.0 Asymptomatic menopausal state
CPT/HCPCS: 77063; 77067; 77080

== ENCOUNTER → 2025-05-09 11:30 | Outpatient (BNV) | payer SELFPAY | PROVIDERS: PCP Nurse Practitioner Family; Visit Provider Radiology Diagnostic Radiology | DX: E28.39 Other primary ovarian failure (principal) | CPT/HCPCS: 77080 ==